=== PATIENT | female | born 1965 | race Caucasian/White ===

== ENCOUNTER 2020-05-11 20:21 | Emergency (ER) | payer OTHER, SELFPAY ==
[2020-05-11 20:30] VITALS: BP 125/76; PULSE 73; RESP 20; TEMP 37.2; O2SAT 99; BMI 36.0
--- NOTE | 2020-05-11 21:02 | HMH.EDUTC ---
[facility] Disposition Clinical Impression: Gastroenteritis Diarrhea Qualifiers: Diarrhea type: unspecified type Qualified Code(s): R19.7 - Diarrhea, unspecified Disposition: Home, Self-Care Condition on Discharge: Good Instructions: Viral Gastroenteritis, DI for Viral Gastroenteritis -- Adult Additional Instructions: Drink plenty of fluids. Take tylenol or ibuprofen for pain or fever. Take the medications as directed. Follow up with your regular doctor. GO TO THE ER FOR ANY WORSENING SYMPTOMS Prescriptions: Ondansetron [Zofran 4mg ODT] 4 mg PO Q8HP PRN #20 tab.rapdis PRN Reason: Nausea Transmission Status: Received by [place] [id number] Dicyclomine HCl [Bentyl 10mg capsule] 10 mg PO TIDP PRN #30 cap PRN Reason: Cramping Transmission Status: Received by [facility] [id number] Referrals: PCP,No [Primary Care Provider] - Time of Disposition: 21:11 Medical Decision Making - Medical Records Medical records reviewed: No: I reviewed the patient's medical records. - Jose Inquiry Pt receiving controlled substance: No Vital Signs: 05/11/20 20:30 05/11/20 21:22 Temperature 99.0 F 99.0 F Temperature Source Oral Pulse Rate 73 Pulse Rate [Right Brachial] 73 Respiratory Rate 20 20 Blood Pressure 125/76 Blood Pressure [Right Arm] 125/76 Blood Pressure Mean [Right Arm] 92 Blood Pressure Source [Right Arm] Automatic Cuff Blood Pressure Position [Right Arm] Sitting 02 Sat by Pulse Oximetry 99 Oxygen Delivery Method Room Air - Lab Data Lab results reviewed: Yes: I reviewed the patient's lab results. Lab Results 05/11/20 20:50: Urine Color Yellow, Urine Appearance Clear, Urine pH 7.0, Ur Specific [place] 1.010, Urine Protein Negative, Urine Glucose (UA) Negative, Urine Ketones Negative, Urine Blood Trace, Urine Nitrate Negative, Urine Bilirubin Negative, Urine Urobilinogen 0.2, Ur Leukocyte Esterase Negative Orders (Tests/Meds): ED MEDICATIONS Discontinued Medications Generic Name Dose Route Start Last Admin Trade Name Freq PRN Reason Stop Dose Admin Promethazine HCl 25 mg 05/11/20 21:13 05/11/20 21:22 Promethazine Hcl 25mg/Ml 1ml Vial IM 05/11/20 21:14 Not Given ONCE ONE Promethazine HCl 25 mg 05/11/20 21:19 05/11/20 21:20 Promethazine 25mg Tablet PO 05/11/20 21:20 25 mg ONCE ONE Administration Sodium Chloride 25 ml 05/11/20 21:13 05/11/20 21:22 Sodium Chloride 0.9% 25ml Bag IV 05/11/20 21:14 Not Given ONCE ONE [facility] HPI - General Stated complaint: nausea, vomiting, diarrhea Time Seen by Provider: 05/11/20 21:02 - History of Present Illness Provider Complaint: She states that since yesterday she has had diarrhea/abdominal cramping/nausea/vomiting. She thinks that she has e. coli poisoning. She had it once in the past and it felt like she does right now. She has not vomited since last night, but she has continued to have diarrhea and abdominal cramping. - Related Data Previous Rx's Medication Instructions Recorded Dicyclomine HCl [Bentyl 10mg 10 mg PO TIDP PRN #30 cap 05/11/20 capsule] Ondansetron [Zofran 4mg ODT] 4 mg PO Q8HP PRN #20 tab.rapdis 05/11/20 Allergies Allergy/AdvReac Type Severity Reaction Status Date / Time No Known Allergies Allergy Verified 05/11/20 21:04 [facility] History - Hepatitis A Screen Attestation statement:: This patient has been screened for Hepatitis A risk factors. I have reviewed the patient's past medical history: Yes ROS Obtained: Yes All systems reviewed & no additional complaints - Constitutional Constitutional: Reports chills, Denies fever(s), Reports poor appetite, Reports malaise - Eyes Eyes: Denies eye discharge - ENT Ears, Nose, Mouth, and Throat: Denies sore throat - Cardiovascular Cardiovascular: Denies chest pain - Respiratory Respiratory: Denies chest congestion, Denies cough, Denies dyspnea, Denies stridor, Denies wheezing - Gastro
[2020-05-11 21:04] LABS: Apearance,Urine Clear (Clear); Bilirubin,Urine Negative (Negative); Blood, Urine Trace (Negative); Color,Urine Yellow (Yellow); Glucose,Urine (UA) Negative (Negative); Ketones,Urine Negative (Negative); Protein,Urine Negative (Negative); UTC Leukocyte Esterase,Urine Negative (Negative); UTC Nitrate,Urine Negative (Negative); Urobilinogen,Urine 0.2 EU/dl (0.2)
[2020-05-11 21:22] VITALS: BP 125/76; PULSE 73; RESP 20; TEMP 37.2; O2SAT 99
== END 2020-05-11 21:25 | disposition home or self-care (01) ==
PROVIDERS: Emergency Provider Nurse Practitioner Family
DX: K52.9 Noninfective gastroenteritis and colitis, unspecified (principal)
CPT/HCPCS: 81003; 99202; G0463

== ENCOUNTER → 2021-07-07 14:38 | Outpatient (POV) | payer OTHER, SELFPAY | PROVIDERS: Visit Provider Dermatology | DX: Z00.00 Encounter for general adult medical examination without abnormal findings (principal) ==

== ENCOUNTER 2022-06-29 14:24 | Emergency (ER) | payer OTHER, SELFPAY ==
[2022-06-29 15:00] VITALS: BP 106/70; PULSE 69; RESP 20; TEMP 37; O2SAT 95; BMI 36.3
--- NOTE | 2022-06-29 15:05 | EXP.UTC ---
Discharge Plan Disposition Patient Disposition: Home, Self-Care Condition: Good Prescriptions Prescriptions: New benzonatate [benzonatate] 100 mg capsule 100 mg PO TIDP PRN (Reason: Cough) Qty: 30 0RF amoxicillin [amoxicillin] 400 mg/5 mL suspension for reconstitution 500 mg PO TID 10 Days Qty: 187.5 0RF methylprednisolone 4 mg Tablets,Dose Pack 4 mg PO DIRECTED Qty: 21 0RF ofloxacin 0.3 % drops See Rx Instructions .ROUTE .COMPLEX Qty: 5 0RF Rx Instructions: put 1 drp into affected eye every 2 h x 2 days, then 1 drp 4 times/day days 3-7 No Action atorvastatin 10 mg tablet 10 mg PO DAILY diltiazem HCl 360 mg capsule,extended release 24hr 360 mg PO DAILY potassium chloride 10 mEq tablet extended release 10 meq PO DAILY bisoprolol fumarate 5 mg tablet 5 mg PO DAILY alprazolam 0.5 mg tablet 0.5 mg PO NEEDED PRN (Reason: .) pantoprazole 40 mg tablet,delayed release (DR/EC) 40 mg PO DAILY furosemide 20 mg tablet 20 mg PO DAILY lisinopril 40 mg tablet 40 mg PO DAILY Referrals Follow up/Referrals: Provider,Referral, MD [Primary Care Provider] - See instructions Activity Restrictions/Add. Instructions Additional Instructions/Restrictions: Drink plenty of fluids. Take tylenol or ibuprofen for pain or fever. Take the medications as directed. Follow up with your regular doctor. GO TO THE ER FOR ANY WORSENING SYMPTOMS Use the eye drops as directed. Strict hand washing in the house hold, because conjunctivitis is very contagious. Follow up with your regular doctor. GO TO THE ER FOR ANY WORSENING SYMPTOMS OR CONCERNS Clinical Impressions Clinical Impression: Conjunctivitis, Sinusitis Instructions Patient Instructions: DI for Sinusitis, Sinusitis Discharge ED Provider: Darrell Aquino [facility] HPI General Stated complaint: Eye redness w/drainage Time Seen by Provider: 06/29/22 15:05 Description of Symptoms (Recalled from Triage Doc. by RN): She states that for the past 1 week she has had sinus congestion. Over the past 2 days she has had bilateral eye irritation and redness with matting and greenish discharge. Related Data Home Medications Medication Instructions Recorded Confirmed alprazolam 0.5 mg tablet 0.5 mg PO NEEDED PRN . 06/29/22 06/29/22 atorvastatin 10 mg tablet 10 mg PO DAILY . 06/29/22 06/29/22 bisoprolol fumarate 5 mg tablet 5 mg PO DAILY . 06/29/22 06/29/22 diltiazem HCl 360 mg 360 mg PO DAILY . 06/29/22 06/29/22 capsule,extended release 24 hr furosemide 20 mg tablet 20 mg PO DAILY . 06/29/22 06/29/22 lisinopril 40 mg tablet 40 mg PO DAILY , 06/29/22 06/29/22 pantoprazole 40 mg tablet,delayed 40 mg PO DAILY gerd 06/29/22 06/29/22 release potassium chloride 10 mEq 10 meq PO DAILY . 06/29/22 06/29/22 tablet,extended release Previous Rx's Medication Instructions Recorded amoxicillin 400 mg/5 mL oral 500 mg (6.25 mL) PO TID 10 days 06/29/22 suspension #187.5 mL benzonatate 100 mg capsule 100 mg PO TIDP PRN Cough #30 caps 06/29/22 methylprednisolone 4 mg tablets in 4 mg PO DIRECTED #21 tabs 06/29/22 a dose pack ofloxacin 0.3 % eye drops See Rx Instructions ophthalmic 06/29/22 (eye) .COMPLEX #5 mL Allergies Allergy/AdvReac Type Severity Reaction Status Date / Time No Known Allergies Allergy Verified 06/29/22 15:16 [facility] Disclaimer: The information contained in this section may have been updated after the patient was seen, as this information can be updated by other users. Social History Smoking Status: Never smoker alcohol intake: never current occupational status: other Travel in the last 8 weeks: None ROS Obtained: Yes All systems reviewed & no additional complaints except as documented Constitutional Constitutional: Reports poor appetite Eyes Eyes: Reports eye discharge ENT E
[2022-06-29 15:50] VITALS: BP 106/70; PULSE 69; RESP 20; TEMP 37; O2SAT 95
== END 2022-06-29 15:50 | disposition home or self-care (01) ==
PROVIDERS: Emergency Provider Nurse Practitioner Family
DX: J01.90 Acute sinusitis, unspecified (principal); H10.33 Unspecified acute conjunctivitis, bilateral
CPT/HCPCS: 99212; 99214; G0463

== ENCOUNTER 2022-09-08 15:05 | Emergency (ER) | payer OTHER, SELFPAY ==
[2022-09-08 15:07] VITALS: BP 114/57; PULSE 66; RESP 18; TEMP 36.7; O2SAT 96; BMI 36.0
--- NOTE | 2022-09-08 15:38 | EXP.UTC ---
Discharge Plan Prescriptions Prescriptions: No Action atorvastatin 10 mg tablet 10 mg PO DAILY diltiazem HCl 360 mg capsule,extended release 24hr 360 mg PO DAILY potassium chloride 10 mEq tablet extended release 10 meq PO DAILY bisoprolol fumarate 5 mg tablet 5 mg PO DAILY alprazolam 0.5 mg tablet 0.5 mg PO NEEDED PRN (Reason: .) pantoprazole 40 mg tablet,delayed release (DR/EC) 40 mg PO DAILY furosemide 20 mg tablet 20 mg PO DAILY lisinopril 40 mg tablet 40 mg PO DAILY benzonatate [benzonatate] 100 mg capsule 100 mg PO TIDP PRN (Reason: Cough) Qty: 30 0RF amoxicillin [amoxicillin] 400 mg/5 mL suspension for reconstitution 500 mg PO TID 10 Days Qty: 187.5 0RF methylprednisolone 4 mg Tablets,Dose Pack 4 mg PO DIRECTED Qty: 21 0RF ofloxacin 0.3 % drops See Rx Instructions .ROUTE .COMPLEX Qty: 5 0RF Rx Instructions: put 1 drp into affected eye every 2 h x 2 days, then 1 drp 4 times/day days 3-7 Referrals Follow up/Referrals: Provider,Referral, MD [Primary Care Provider] - See instructions Discharge ED Provider: Janeth Breen [facility] [place] HPI General Stated complaint: [id number] LT index finger, metal slither still in fi Mode of Arrival: Ambulatory Source of Information: Patient Limitations: No Limitations Description of Symptoms (Recalled from Triage Doc. by RN): Patient states she got a piece of abner metal stuck in her finger yesterday and now presents to [facility] requesting a tetanus shot. HEENT Symptoms (Recalled from RN notes): No Resp Symptoms (Recalled from RN notes): No Skin Symptoms (Recalled from RN notes): Yes MS Symptoms (Recalled from RN notes): No Functional Status (Recalled from RN notes): wnl Related Data Home Medications Medication Instructions Recorded Confirmed alprazolam 0.5 mg tablet 0.5 mg PO NEEDED PRN . 06/29/22 06/29/22 atorvastatin 10 mg tablet 10 mg PO DAILY . 06/29/22 06/29/22 bisoprolol fumarate 5 mg tablet 5 mg PO DAILY . 06/29/22 06/29/22 diltiazem HCl 360 mg 360 mg PO DAILY . 06/29/22 06/29/22 capsule,extended release 24 hr furosemide 20 mg tablet 20 mg PO DAILY . 06/29/22 06/29/22 lisinopril 40 mg tablet 40 mg PO DAILY , 06/29/22 06/29/22 pantoprazole 40 mg tablet,delayed 40 mg PO DAILY gerd 06/29/22 06/29/22 release potassium chloride 10 mEq 10 meq PO DAILY . 06/29/22 06/29/22 tablet,extended release Previous Rx's Medication Instructions Recorded amoxicillin 400 mg/5 mL oral 500 mg (6.25 mL) PO TID 10 days 06/29/22 suspension #187.5 mL benzonatate 100 mg capsule 100 mg PO TIDP PRN Cough #30 caps 06/29/22 methylprednisolone 4 mg tablets in 4 mg PO DIRECTED #21 tabs 06/29/22 a dose pack ofloxacin 0.3 % eye drops See Rx Instructions ophthalmic 06/29/22 (eye) .COMPLEX #5 mL Allergies Allergy/AdvReac Type Severity Reaction Status Date / Time No Known Allergies Allergy Verified 06/29/22 15:16 Worker's Comp Is this a Worker's Comp case?: No PFSH [facility] Disclaimer: The information contained in this section may have been updated after the patient was seen, as this information can be updated by other users. Social History (Updated 06/29/22 @ 16:18 by Darrell Aquino APRN) Smoking Status: Never smoker alcohol intake: never current occupational status: other Travel in the last 8 weeks: None Medical Decision Making Vital Signs: 09/08/22 15:07 Temperature 98.0 F Temperature Source Oral Pulse Rate [Radial] 66 Respiratory Rate 18 Blood Pressure [Right Arm] 114/57 L Blood Pressure Mean [Right Arm] 76 Blood Pressure Source [Right Arm] Automatic Cuff Blood Pressure Position [Right Arm] Sitting 02 Sat by Pulse Oximetry 96 Oxygen Delivery Method Room Air
[2022-09-08 15:55] VITALS: BP 114/57; PULSE 66; RESP 18; TEMP 36.7; O2SAT 96
--- NOTE | 2022-09-08 15:57 | PC.NURSE ---
Patient very eager to leave after vaccination. Educated patient on the need to wait 15 minutes before discharge. Patient stating she has a meeting at 4 o'clock and needs to leave now.
== END 2022-09-08 15:56 | disposition home or self-care (01) ==
LOC: UTC 15:10
PROVIDERS: Emergency Provider Nurse Practitioner
DX: Z23 Encounter for immunization (principal)
CPT/HCPCS: 90471; 90714; 90715; 96372; 99212; G0463

== ENCOUNTER → 2022-11-15 13:38 | Outpatient (CLI) | payer OTHER, SELFPAY ==
--- NOTE | 2022-11-15 13:50 | MM_ITS ---
PROCEDURE INFORMATION: Exam: MG Bilateral Screening 3D Mammography Exam date and time: 11/15/2022 1:40 PM Age: 57 years old Clinical indication: Screening TECHNIQUE: Imaging protocol: Bilateral Screening tomosynthesis and 2D mammography including computer-aided detection (CAD) when performed. COMPARISON: 1. MG MAMMO DIAGNOSTIC DIGITAL TOMOSYNTHESIS BILATERAL W CAD 02/11/2017 1:41 PM 2. US BREAST BILATERAL LIMITED 02/11/2017 6:08 PM FINDINGS: MAMMOGRAPHY: Breast composition: The breast tissue is composed of scattered areas of fibroglandular density. Mass: None Architectural distortion: None. Calcifications: No suspicious calcifications. Asymmetric density: None. Skin thickening: None Axillary adenopathy: None. IMPRESSION: No mammographic evidence of malignancy. Annual bilateral mammographic screening is recommended unless otherwise clinically indicated. ASSESSMENT: BI-RADS Category 1: Negative
== END ==
PROVIDERS: Visit Provider Internal Medicine
DX: Z12.31 Encounter for screening mammogram for malignant neoplasm of breast
CPT/HCPCS: 77062; 77063; 77066; 77067; G0279

== ENCOUNTER → 2022-11-25 11:04 | Outpatient (CLI) | payer OTHER, SELFPAY ==
[2022-11-25 11:14] LABS: Adenovirus F 40/41, stool Not Detected (NotDetected); Astrovirus Not Detected (NotDetected); Campylobacter Not Detected (NotDetected); Clostridium Difficile A/B, PCR Not Detected (NotDetected); Cryptosporidium Not Detected (NotDetected); Cyclospora Cayetanesis Not Detected (NotDetected); Entamoeba histolytica Not Detected (NotDetected); Enteroaggregative E coli Not Detected (NotDetected); Enterotoxigenic E coli Not Detected (NotDetected); Giardia lamblia Not Detected (NotDetected); Norovirus Not Detected (NotDetected); Plesimonas Shigalloides, PCR Not Detected (NotDetected); Rotavirus A Not Detected (NotDetected); Salmonella, PCR Not Detected (NotDetected); Sapovirus Not Detected (NotDetected); Shiga-like toxin E coli Not Detected (NotDetected); Shigella Enterovasive E coli Not Detected (NotDetected); Vibrio Cholerae Not Detected (NotDetected); Vibrio, PCR Not Detected (NotDetected); Yersinia Entercolitica, PCR Not Detected (NotDetected)
[2022-11-26 11:07] LABS: Enteropathogenic E coli Detected (NotDetected)
== END ==
PROVIDERS: PCP Internal Medicine; Visit Provider Internal Medicine
DX: R19.7 Diarrhea, unspecified (principal); A04.0 Enteropathogenic Escherichia coli infection
CPT/HCPCS: 87177; 87507

== ENCOUNTER 2023-01-18 11:06 | Emergency (ER) | payer OTHER, SELFPAY ==
[2023-01-18 11:10] VITALS: BP 146/80; PULSE 83; RESP 21; TEMP 37.1; O2SAT 94; BMI 32.8
--- NOTE | 2023-01-18 11:26 | EXP.UTC ---
Discharge Plan Disposition Patient Disposition: Home, Self-Care Condition: Good Prescriptions Prescriptions: New azithromycin [Zithromax Z-Musa] 250 mg tablet See Rx Instructions .ROUTE .COMPLEX 5 Days Qty: 6 0RF Rx Instructions: For 250 mg dose pack: take 500 mg today (day 1), then 250 mg for 4 days (days 2-5) methylprednisolone [Medrol (Musa)] 4 mg tablets,dose pack See Rx Instructions .Route .COMPLEX 6 Days Qty: 21 0RF Rx Instructions: taper pack; guaifenesin [Mucinex] 600 mg tablet extended release 12hr 1,200 mg PO BID PRN (Reason: cough) Qty: 20 0RF No Action atorvastatin 10 mg tablet 10 mg PO DAILY diltiazem HCl 360 mg capsule,extended release 24hr 360 mg PO DAILY potassium chloride 10 mEq tablet extended release 10 meq PO DAILY bisoprolol fumarate 5 mg tablet 5 mg PO DAILY alprazolam 0.5 mg tablet 0.5 mg PO NEEDED PRN (Reason: .) pantoprazole 40 mg tablet,delayed release (DR/EC) 40 mg PO DAILY furosemide 20 mg tablet 20 mg PO DAILY lisinopril 40 mg tablet 40 mg PO DAILY benzonatate [benzonatate] 100 mg capsule 100 mg PO TIDP PRN (Reason: Cough) Qty: 30 0RF amoxicillin [amoxicillin] 400 mg/5 mL suspension for reconstitution 500 mg PO TID 10 Days Qty: 187.5 0RF methylprednisolone 4 mg Tablets,Dose Pack 4 mg PO DIRECTED Qty: 21 0RF ofloxacin 0.3 % drops See Rx Instructions .ROUTE .COMPLEX Qty: 5 0RF Rx Instructions: put 1 drp into affected eye every 2 h x 2 days, then 1 drp 4 times/day days 3-7 Referrals Follow up/Referrals: Nuria Wilson MD [Primary Care Provider] - See instructions Activity Restrictions/Add. Instructions Additional Instructions/Restrictions: Start antibiotic today. Be sure to complete entire prescription even if feeling better Monitor temp. Tylenol every 4 hours as needed and / or ibuprofen every 6 hours as needed ( As long as your primary care physician has told you that it ok to take both. For fever/aches/pains ER if no less than 101 despite Tylenol or Motrin Humidifier/vaporizer or hot steamy shower Inhaler every 4-6 hours as needed like we discussed. If unsure how to use it, ask pharmacist to demonstrate how. Should help open airways and improve cough, wheezing, and shortness of breath Mucinex during the day for your cough and cough suppressant only at night. Be sure to drink lots of water. Insurance may not cover a prescriptions for mucinex. Might be cheaper to get 400mg tablets and take 2 tablet in the morning, mid-day and evening with lots of water. *Start steroid today. Helps with inflammation therefore, cough and wheezing. Follow directions on the package. Reviewed side effects. Patient reports taking them before. Follow up IMMEDIATELY for new or worsening of symptoms OR no noticeable improvement over the next 48-72 hours. 911 immediately for any life threatening symptoms such as chest pain or difficulty breathing Clinical Impressions Clinical Impression: Acute bronchitis Qualifiers: Bronchitis organism: unspecified organism Qualified Code(s): J20.9 - Acute bronchitis, unspecified Instructions Patient Instructions: Acute Bronchitis, Asthma -- Adult, DI for Acute Bronchitis Discharge ED Provider: Janeth Breen [facility] General Stated complaint: soa Mode of Arrival: Ambulatory Source of Information: Patient Limitations: No Limitations Time Seen by Provider: 01/18/23 11:26 Description of Symptoms (Recalled from Triage Doc. by RN): PATIENT C/O SOA SINCE YESTERDAY HEENT Symptoms (Recalled from RN notes): No Resp Symptoms (Recalled from RN notes): Yes Skin Symptoms (Recalled from RN notes): No MS Symptoms (Recalled from RN notes): No Functional Status (Recalled from RN notes): WNL History of Present Illness Provider Complaint: Patient states that she has a history of
[2023-01-18 11:48] VITALS: BP 146/80; PULSE 83; RESP 21; TEMP 37.1; O2SAT 94
== END 2023-01-18 11:51 | disposition home or self-care (01) ==
PROVIDERS: Emergency Provider Nurse Practitioner; PCP Internal Medicine
DX: J20.9 Acute bronchitis, unspecified (principal); R06.02 Shortness of breath; J44.9 Chronic obstructive pulmonary disease, unspecified; I10 Essential (primary) hypertension; F41.9 Anxiety disorder, unspecified; F32.A Depression, unspecified
CPT/HCPCS: 96372; 99212; 99214; G0463

== ENCOUNTER 2023-01-19 15:21 | Emergency (ER) | payer OTHER, SELFPAY ==
[2023-01-19 15:22] VITALS: BP 139/86; PULSE 76; RESP 18; TEMP 36.8; O2SAT 97; BMI 36.0
--- NOTE | 2023-01-19 15:45 | EXP.UTC ---
Discharge Plan Disposition Patient Disposition: Home, Self-Care Condition: Good Prescriptions Prescriptions: New albuterol sulfate 90 mcg/actuation HFA aerosol inhaler 1 inh inhalation QID PRN (Reason: shortness of breath or wheezing) Qty: 6.7 0RF No Action atorvastatin 10 mg tablet 10 mg PO DAILY diltiazem HCl 360 mg capsule,extended release 24hr 360 mg PO DAILY potassium chloride 10 mEq tablet extended release 10 meq PO DAILY bisoprolol fumarate 5 mg tablet 5 mg PO DAILY alprazolam 0.5 mg tablet 0.5 mg PO NEEDED PRN (Reason: .) pantoprazole 40 mg tablet,delayed release (DR/EC) 40 mg PO DAILY furosemide 20 mg tablet 20 mg PO DAILY lisinopril 40 mg tablet 40 mg PO DAILY azithromycin [Zithromax Z-Musa] 250 mg tablet See Rx Instructions .ROUTE .COMPLEX 5 Days Qty: 6 0RF Rx Instructions: For 250 mg dose pack: take 500 mg today (day 1), then 250 mg for 4 days (days 2-5) methylprednisolone [Medrol (Musa)] 4 mg tablets,dose pack See Rx Instructions .Route .COMPLEX 6 Days Qty: 21 0RF Rx Instructions: taper pack; guaifenesin [Mucinex] 600 mg tablet extended release 12hr 1,200 mg PO BID PRN (Reason: cough) Qty: 20 0RF Referrals Follow up/Referrals: Ifeanyi Barrera MD [Primary Care Provider] - See instructions Clinical Impressions Clinical Impression: Acute bronchitis Qualifiers: Bronchitis organism: unspecified organism Qualified Code(s): J20.9 - Acute bronchitis, unspecified Instructions Patient Instructions: DI for Acute Bronchitis, Acute Bronchitis Discharge ED Provider: Ivonne ([facility])Nirmal [facility] [place] General Stated complaint: SOA Mode of Arrival: Ambulatory Source of Information: Patient Limitations: No Limitations Time Seen by Provider: 01/19/23 15:45 Description of Symptoms (Recalled from Triage Doc. by RN): Pt was seen yesterday for the same issues. She stated that she feels like she cannot take a full breath . She was given mucus, medrol, and a zpak. She is wanting maybe a steroid shot or a breathing treatment. HEENT Symptoms (Recalled from RN notes): Yes Resp Symptoms (Recalled from RN notes): No Skin Symptoms (Recalled from RN notes): No MS Symptoms (Recalled from RN notes): No Functional Status (Recalled from RN notes): n/a History of Present Illness Provider Complaint: Pt was seen yesterday for the same issues. She stated that she feels like she cannot take a full breath . She was given mucus, medrol, and a zpak. She is wanting maybe a steroid shot or a breathing treatment. refused chest xray Related Data Home Medications Medication Instructions Recorded Confirmed alprazolam 0.5 mg tablet 0.5 mg PO NEEDED PRN . 06/29/22 06/29/22 atorvastatin 10 mg tablet 10 mg PO DAILY . 06/29/22 06/29/22 bisoprolol fumarate 5 mg tablet 5 mg PO DAILY . 06/29/22 06/29/22 diltiazem HCl 360 mg 360 mg PO DAILY . 06/29/22 06/29/22 capsule,extended release 24 hr furosemide 20 mg tablet 20 mg PO DAILY . 06/29/22 06/29/22 lisinopril 40 mg tablet 40 mg PO DAILY , 06/29/22 06/29/22 pantoprazole 40 mg tablet,delayed 40 mg PO DAILY gerd 06/29/22 06/29/22 release potassium chloride 10 mEq 10 meq PO DAILY . 06/29/22 06/29/22 tablet,extended release Previous Rx's Medication Instructions Recorded azithromycin 250 mg tablet See Rx Instructions PO .COMPLEX 5 01/18/23 (Zithromax Z-Musa) days #6 tabs guaifenesin 600 mg tablet, 1,200 mg PO BID PRN cough #20 tabs 01/18/23 extended release 12 hr (Mucinex) methylprednisolone 4 mg tablets in See Rx Instructions .Route 01/18/23 a dose pack (Medrol (Musa)) .COMPLEX 6 days #21 tabs albuterol sulfate 90 mcg/actuation 1 inh inhalation QID PRN shortness 01/19/23 aerosol inhaler of breath or wheezing #6.7 grams Allergies Allergy/AdvReac Type Severity Reaction Status Date / Time No Known Allergies Allergy Verified 01/19/23 15:39 Worker's Comp Is this a Worker's Comp
[2023-01-19 16:10] VITALS: BP 139/86; PULSE 76; RESP 18; TEMP 36.8; O2SAT 97
== END 2023-01-19 16:10 | disposition home or self-care (01) ==
PROVIDERS: Emergency Provider Nurse Practitioner Family; PCP Internal Medicine
DX: J20.9 Acute bronchitis, unspecified (principal); R06.02 Shortness of breath; J44.9 Chronic obstructive pulmonary disease, unspecified; I10 Essential (primary) hypertension; F41.9 Anxiety disorder, unspecified; F32.A Depression, unspecified
CPT/HCPCS: 99212; 99214; G0463

== ENCOUNTER 2023-09-09 12:43 | Outpatient (CLI) | payer OTHER, SELFPAY ==
[2023-09-09 12:49] LABS: Adenovirus F 40/41, stool Not Detected (NotDetected); Astrovirus Not Detected (NotDetected); Campylobacter Not Detected (NotDetected); Clostridium Difficile A/B, PCR Not Detected (NotDetected); Cryptosporidium Not Detected (NotDetected); Cyclospora Cayetanesis Not Detected (NotDetected); Entamoeba histolytica Not Detected (NotDetected); Enteroaggregative E coli Not Detected (NotDetected); Enteropathogenic E coli Not Detected (NotDetected); Enterotoxigenic E coli Not Detected (NotDetected); Giardia lamblia Not Detected (NotDetected); Norovirus Not Detected (NotDetected); Plesimonas Shigalloides, PCR Not Detected (NotDetected); Rotavirus A Not Detected (NotDetected); Salmonella, PCR Not Detected (NotDetected); Sapovirus Not Detected (NotDetected); Shiga-like toxin E coli Not Detected (NotDetected); Shigella Enterovasive E coli Not Detected (NotDetected); Vibrio Cholerae Not Detected (NotDetected); Vibrio, PCR Not Detected (NotDetected); Yersinia Entercolitica, PCR Not Detected (NotDetected)
== END 2023-09-09 23:59 | disposition home or self-care (01) ==
PROVIDERS: Internal Medicine
DX: R19.7 Diarrhea, unspecified (principal)
CPT/HCPCS: 87507

== ENCOUNTER 2023-09-21 12:39 | Outpatient (CLI) | payer OTHER, SELFPAY | END 2023-09-21 23:59 | disposition home or self-care (01) | LOC: LAB.DROPOF 12:43 | PROVIDERS: PCP Internal Medicine; Visit Provider Internal Medicine | DX: R19.7 Diarrhea, unspecified (principal) | CPT/HCPCS: 87177 ==

== ENCOUNTER 2023-11-04 12:03 | Emergency (ER) | payer OTHER, SELFPAY ==
--- NOTE | 2023-11-04 12:17 | ED_ITS ---
Discharge Plan Disposition Patient Disposition: Home, Self-Care Condition: Good Prescriptions Prescriptions: New mupirocin 2 % ointment 1 applic topical TID 7 Days Qty: 15 0RF amoxicillin-pot clavulanate 875-125 mg Tablet 1 tab PO Q12H Qty: 20 0RF No Action zolpidem 10 mg tablet 10 mg PO HS PRN (Reason: insomnia) Qty: 30 0RF atorvastatin 10 mg tablet 10 mg PO DAILY diltiazem HCl 360 mg capsule,extended release 24hr 360 mg PO DAILY potassium chloride 10 mEq tablet extended release 10 meq PO DAILY bisoprolol fumarate 5 mg tablet 5 mg PO DAILY alprazolam 0.5 mg tablet 0.5 mg PO NEEDED PRN (Reason: .) pantoprazole 40 mg tablet,delayed release (DR/EC) 40 mg PO DAILY furosemide 20 mg tablet 20 mg PO DAILY lisinopril 40 mg tablet 40 mg PO DAILY azithromycin [Zithromax Z-Musa] 250 mg tablet See Rx Instructions .ROUTE .COMPLEX 5 Days Qty: 6 0RF Rx Instructions: For 250 mg dose pack: take 500 mg today (day 1), then 250 mg for 4 days (days 2-5) methylprednisolone [Medrol (Musa)] 4 mg tablets,dose pack See Rx Instructions .Route .COMPLEX 6 Days Qty: 21 0RF Rx Instructions: taper pack; guaifenesin [Mucinex] 600 mg tablet extended release 12hr 1,200 mg PO BID PRN (Reason: cough) Qty: 20 0RF albuterol sulfate 90 mcg/actuation HFA aerosol inhaler 1 inh inhalation QID PRN (Reason: shortness of breath or wheezing) Qty: 6.7 0RF Referrals Follow up/Referrals: Ifeanyi Barrera MD [Primary Care Provider] - See instructions Activity Restrictions/Add. Instructions Additional Instructions/Restrictions: Keep the wound clean and dry. Keep a dressing on it if you are going to be getting it dirty. Watch the wound for signs of infection, such as redness, swelling, drainage, fever. etc. Take tylenol or ibuprofen for pain. Follow up with your regular doctor. GO TO THE ER FOR ANY WORSENING SYMPTOMS OR CONCERNS. Clinical Impressions Clinical Impression: Abscess of skin Instructions Patient Instructions: Amoxicillin and Clavulanic Acid, Mupirocin, DI for Skin Abscess Print Language Print Language: Sami Discharge ED Provider: Darrell Aquino [facility] HPI General Stated complaint: infection in L thumb Time Seen by Provider: 11/04/23 12:14 Related Data Home Medications ?Medication ?Instructions ?Recorded ?Confirmed alprazolam 0.5 mg tablet 0.5 mg PO NEEDED PRN . 06/29/22 06/29/22 atorvastatin 10 mg tablet 10 mg PO DAILY . 06/29/22 06/29/22 bisoprolol fumarate 5 mg tablet 5 mg PO DAILY . 06/29/22 06/29/22 diltiazem HCl 360 mg 360 mg PO DAILY . 06/29/22 06/29/22 capsule,extended release 24 hr furosemide 20 mg tablet 20 mg PO DAILY . 06/29/22 06/29/22 lisinopril 40 mg tablet 40 mg PO DAILY , 06/29/22 06/29/22 pantoprazole 40 mg tablet,delayed 40 mg PO DAILY gerd 06/29/22 06/29/22 release potassium chloride 10 mEq 10 meq PO DAILY . 06/29/22 06/29/22 tablet,extended release Previous Rx's ?Medication ?Instructions ?Recorded azithromycin 250 mg tablet See Rx Instructions PO .COMPLEX 5 01/18/23 (Zithromax Z-Musa) days #6 tabs guaifenesin 600 mg tablet, 1,200 mg (2 x 600 mg) PO BID PRN 01/18/23 extended release 12 hr (Mucinex) cough #20 tabs methylprednisolone 4 mg tablets in See Rx Instructions .Route 01/18/23 a dose pack (Medrol (Musa)) .COMPLEX 6 days #21 tabs albuterol sulfate 90 mcg/actuation 1 inh inhalation QID PRN shortness 01/19/23 aerosol inhaler of breath or wheezing #6.7 grams zolpidem 10 mg tablet 10 mg PO HS PRN insomnia #30 tabs 10/14/23 amoxicillin 875 mg-potassium 1 tab PO Q12H #20 tabs 11/04/23 clavulanate 125 mg tablet mupirocin 2 % topical ointment 1 applic topical TID 7 days #15 11/04/23 grams Allergies Allergy/AdvReac Type Severity Reaction Status Date / Time No Known Allergies Allergy Verified 01/19/23 15:39 [facility] Disclaimer: The information contained in this section may have been updated after the patient was seen, as this information can be updated by other users. Medical History (Reviewed 01/19/23 @ 15:53 by Nirmal Coronado ([facility]), FACULTY NEUROPSYCHOLOGIST) Anxiety Asthma Atrial fibrillation COPD (chronic obstructive pulmonary disease) Depression Hypertension Social History (Reviewed 01/19/23 @ 15:53 by Nirmal Coronado ([facility]), FACULTY NEUROPSYCHOLOGIST) Smoking Status: Never smoker alcohol intake: never current occupational status: other Travel in the last 8 weeks: None ROS Obtained: Yes All systems reviewed & no additional complaints except as documented Constitutional Constitutional: Denies chills and Denies fever(s) Eyes Eyes: Denies eye discharge ENT Ears, Nose, Mouth, and Throat: Denies dizziness, Denies otalgia and Denies sore throat Cardiovascular Cardiovascular: Denies chest pain Respiratory Respiratory: Denies shortness of breath, Denies chest congestion, Denies cough, Denies stridor and Denies wheezing Gastrointestinal Gastrointestingal: Denies nausea or vomiting Musculoskeletal Musculoskeletal: Reports system reviewed and no additional complaints, except as documented and Denies arthralgias Integumentary/Breasts Skin/Breast: Reports as per HPI Neurologic Neurologic: Denies dizziness and Denies paresthesias Allergic/Immunologic Allergic/Immunologic: Denies wheezing Physical Exam General General appearance: alert and in no apparent distress Head Head exam: atraumatic, normocephalic and normal inspection Eye Eye exam: Present normal appearance, PERRL and EOMI ENT ENT exam: Present normal exam, normal oropharynx, mucous membranes moist, TM's normal bilaterally and normal external ear exam Neck Neck exam: Present normal inspection, full ROM and trachea midline; Absent meningismus or lymphadenopathy Chest Chest inspection: Present normal inspection and symmetric chest wall rise; Absent tenderness Respiratory Respiratory exam: Present normal lung sounds bilaterally; Absent respiratory distress Cardiovascular Cardiovascular exam: Present regular rate and normal rhythm; Absent JVD Abdominal Exam Abdominal exam: Present soft and normal bowel sounds; Absent distention, tenderness or guarding Extremities Exam Extremities exam: Present normal inspection, full ROM and normal capillary refill; Absent calf tenderness Back Exam Back exam: Present normal inspection; Absent tenderness Neurological Exam Neurological exam: Present alert and oriented X3 Psychiatric Psychiatric exam: Present normal affect and normal mood Skin Skin exam: Present warm, dry, intact and normal color Lymphatic Lymphatic Findings: no adenopathy Medical Decision Making Medical Records Medical records reviewed: No I reviewed the patient's medical records. Jose Inquiry Pt receiving controlled substance: No
[2023-11-04 12:19] VITALS: BP 122/79; PULSE 65; RESP 16; TEMP 36.6; O2SAT 95; BMI 34.4
[2023-11-04 12:48] VITALS: BP 122/79; PULSE 65; RESP 16; TEMP 36.6; O2SAT 95
== END 2023-11-04 12:49 | disposition home or self-care (01) ==
PROVIDERS: Emergency Provider Nurse Practitioner Family; PCP Internal Medicine
DX: L02.512 Cutaneous abscess of left hand (principal)
CPT/HCPCS: 99212; 99214; G0463

== ENCOUNTER 2023-12-23 13:08 | Outpatient (CLI) | payer OTHER, SELFPAY ==
[2023-12-23 13:54] LABS: Hemoglobin A1C 6.1 % (4.0-6.0)
== END 2023-12-23 23:59 | disposition home or self-care (01) ==
PROVIDERS: PCP Internal Medicine; Visit Provider Internal Medicine
DX: R73.03 Prediabetes (principal)
CPT/HCPCS: 36415; 83036

== ENCOUNTER 2024-02-04 15:30 | Emergency (ER) | payer OTHER, SELFPAY ==
[2024-02-04 15:40] VITALS: BP 142/83; PULSE 74; RESP 19; TEMP 36.9; O2SAT 96; BMI 41.3
[2024-02-04] MEDS: TETRACAINE/BENZOCAINE/BUTAMBEN 56 GM SPRAY TP (15:54)
[2024-02-04] MEDS: LIDOCAINE 2% VISCOUS SOL 15ML UDC 15 ML PO (15:54)
--- NOTE | 2024-02-04 15:55 | ED_ITS ---
Discharge Plan Disposition Patient Disposition: Home, Self-Care Condition: Good Prescriptions Prescriptions: No Action temazepam 30 mg capsule 30 mg PO HS PRN (Reason: sleep) Qty: 15 0RF clonazepam [Klonopin] 1 mg tablet 1 mg PO DAILY Qty: 30 1RF Rx Instructions: take when systolic is greater than 180 and dystolic is greater than 110 zolpidem 10 mg tablet 10 mg PO HS PRN (Reason: sleep) Qty: 30 1RF alprazolam 0.5 mg tablet 0.5 mg PO NEEDED PRN (Reason: . Anxiety attack) Qty: 15 0RF atorvastatin 10 mg tablet 10 mg PO DAILY diltiazem HCl 360 mg capsule,extended release 24hr 360 mg PO DAILY potassium chloride 10 mEq tablet extended release 10 meq PO DAILY bisoprolol fumarate 5 mg tablet 5 mg PO DAILY pantoprazole 40 mg tablet,delayed release (DR/EC) 40 mg PO DAILY furosemide 20 mg tablet 20 mg PO DAILY lisinopril 40 mg tablet 40 mg PO DAILY albuterol sulfate 90 mcg/actuation HFA aerosol inhaler 1 inh inhalation QID PRN (Reason: shortness of breath or wheezing) Qty: 6.7 0RF mupirocin 2 % ointment 1 applic topical TID 7 Days Qty: 15 0RF Referrals Follow up/Referrals: Nuria Wilson MD [Primary Care Provider] - See instructions Activity Restrictions/Add. Instructions Additional Instructions/Restrictions: Use dental balls as prescribed You said you had Motrin at home, take it as directed on package and if you need something more take Tylenol Call and make appointment with dentist immediately Soft foods until seen by Dentist Clinical Impressions Clinical Impression: Pain, dental Instructions Patient Instructions: DI for Dental Pain, Ibuprofen Print Language Print Language: Persian Discharge ED Provider: Janeth Breen [facility] [place] HPI General Stated complaint: Toothache Mode of Arrival: Ambulatory Source of Information: Patient Limitations: No Limitations Time Seen by Provider: 02/04/24 15:55 Description of Symptoms (Recalled from Triage Doc. by RN): PATIENT C/O PAIN TO RIGHT TOP TOOTH. SHE STATES SHE WAS EATING LAST NIGHT AND BIT DOWN ON A PIECE OF BONE AND BROKE HER TOOTH HEENT Symptoms (Recalled from RN notes): Yes Resp Symptoms (Recalled from RN notes): No Skin Symptoms (Recalled from RN notes): No MS Symptoms (Recalled from RN notes): No Functional Status (Recalled from RN notes): WNL History of Present Illness Provider Complaint: Patient states that she was eating last night and her a cracking noise States that she thinks she may have cracked or broke her tooth States that she looked and does not see any broken tooth but she has been having pain in the tooth ever since Related Data Home Medications ?Medication ?Instructions ?Recorded ?Confirmed atorvastatin 10 mg tablet 10 mg PO DAILY . 06/29/22 01/13/24 bisoprolol fumarate 5 mg tablet 5 mg PO DAILY . 06/29/22 01/13/24 diltiazem HCl 360 mg 360 mg PO DAILY . 06/29/22 01/13/24 capsule,extended release 24 hr furosemide 20 mg tablet 20 mg PO DAILY . 06/29/22 01/13/24 lisinopril 40 mg tablet 40 mg PO DAILY , 06/29/22 01/13/24 pantoprazole 40 mg tablet,delayed 40 mg PO DAILY gerd 06/29/22 01/13/24 release potassium chloride 10 mEq 10 meq PO DAILY . 06/29/22 01/13/24 tablet,extended release Previous Rx's ?Medication ?Instructions ?Recorded albuterol sulfate 90 mcg/actuation 1 inh inhalation QID PRN shortness 01/19/23 aerosol inhaler of breath or wheezing #6.7 grams mupirocin 2 % topical ointment 1 applic topical TID 7 days #15 11/04/23 grams temazepam 30 mg capsule 30 mg PO HS PRN sleep #15 caps 11/17/23 clonazepam 1 mg tablet (Klonopin) 1 mg PO DAILY #30 tabs 12/27/23 zolpidem 10 mg tablet 10 mg PO HS PRN sleep #30 tabs 12/27/23 alprazolam 0.5 mg tablet 0.5 mg PO NEEDED PRN . Anxiety 01/11/24 attack #15 tabs Allergies Allergy/AdvReac Type Severity Reaction Status Date / Time No Known Allergies Allergy Verified 01/13/24 12:53 Worker's Comp Is this a Worker's Comp case?: No [facility] Disclaimer: The information contained in this section may have been updated after the patient was seen, as this information can be updated by other users. Medical History Depression Anxiety COPD (chronic obstructive pulmonary disease) Asthma Atrial fibrillation Hypertension Social History Smoking Status: Never smoker alcohol intake: never current occupational status: other Travel in the last 8 weeks: None ROS Obtained: Yes All systems reviewed & no additional complaints except as documented and Yes Systems reviewed as appropriate & no additional complaints except as documented Constitutional Constitutional: Reports system reviewed and no additional complaints, except as documented and Reports as per HPI ENT Ears, Nose, Mouth, and Throat: Reports system reviewed and no additional complaints, except as documented, Reports as per HPI and Reports dental pain Cardiovascular Cardiovascular: Reports system reviewed and no additional complaints, except as documented and Reports as per HPI Respiratory Respiratory: Reports system reviewed and no additional complaints, except as documented and Reports as per HPI Gastrointestinal Gastrointestingal: Reports system reviewed and no additional complaints, except as documented and as per HPI Physical Exam General General appearance: alert and in no apparent distress Expanded ENT Exam Open Mouth Image: 2 1. reports tenderness when touched, sensitivity to cold, no swelling or redness noted to gums, has metal filling in one of teeth no obvious breaks or cracks noted Teeth exam: Present dental tenderness # Respiratory Respiratory exam: Present normal lung sounds bilaterally; Absent respiratory distress or wheezes Cardiovascular Cardiovascular exam: Present regular rate, normal rhythm and normal heart sounds Neurological Exam Neurological exam: Present alert, oriented X3 and normal gait Medical Decision Making Medical Records Screening: Per USPSTF and CDC recommendations, given the prevalence of disease in our region, it is our hospital?s policy to screen for HIV and viral Hepatitis for all patients aged 18 and over and those with ongoing risk factors. Jose Inquiry Pt receiving controlled substance: No Jose was queried for this patient: No Vital Signs: 02/04/24 15:40 Temperature 98.4 F Temperature Source Oral Pulse Rate [Left Brachial] 74 Respiratory Rate 19 Blood Pressure [Left Arm] 142/83 H Blood Pressure Mean [Left Arm] 102 Blood Pressure Source [Left Arm] Automatic Cuff Blood Pressure Position [Left Arm] Sitting 02 Sat by Pulse Oximetry 96 Oxygen Delivery Method Room Air Orders (Tests/Meds): ED MEDICATIONS Generic Name Dose Route Start Last Admin Trade Name Freq PRN Reason Stop Dose Admin Benzocaine/Butamben/Tetracaine HCl 1 gm 02/04/24 15:52 02/04/24 15:54 Tetracaine/Benzocaine/Butamben 56 Gm [place] TP 02/04/24 15:53 1 gm ONCE ONE Administration Lidocaine HCl 15 ml 02/04/24 15:52 02/04/24 15:54 Lidocaine 2% Viscous Adela 15ml Udc PO 02/04/24 15:53 15 ml ONCE ONE Administration
[2024-02-04 16:08] VITALS: BP 142/83; PULSE 74; RESP 19; TEMP 36.9; O2SAT 96
== END 2024-02-04 16:10 | disposition home or self-care (01) ==
PROVIDERS: Emergency Provider Nurse Practitioner; PCP Internal Medicine
DX: K08.89 Other specified disorders of teeth and supporting structures (principal)
CPT/HCPCS: 99212; G0381

== ENCOUNTER 2024-12-14 17:44 | Emergency (ER) | payer OTHER, SELFPAY ==
[2024-12-14] VITALS (7 sets, daily range): BP systolic 113–205; BP diastolic 61–114; PULSE 54–65; RESP 9–18; TEMP 37.1; O2SAT 95–99; BMI 36.0
--- NOTE | 2024-12-14 18:20 | ECG_ITS ---
APPROVED REPORT Exam: Resting ECG HR:57 bpm ECG Measurements Heart Rate 57 AXES UT 170 P 32 QRSd 86 QRS 23 QT 402 T 14 QTc 396 Conclusion SINUS BRADYCARDIA LOW QRS VOLTAGE IN PRECORDIAL LEADS [QRS DEFLECTION < 1.0 mV IN CHEST LEADS] BORDERLINE ECG UNCONFIRMED REPORT Electronically signed by : Darrell Chery, 12/14/2024 23:27:56
--- OUTSIDE RECORDS SUMMARY | 2024-12-14 18:28 | XMS_ITS | Patient Health Record ---
Author Organization [facility] Address [address] [place] [address] Care Team Providers Care Operational Trainer Name Role Phone Silvia Rider Unavailable [phone] Allergies Allergen (clinical drug ingredient) Drug/Non Drug Allergy documented on EMR Reaction Allergy Type Onset Date Status codeine Codeine rash Drug Allergy Active Reason For Referral No Information Medications Medication SIG (Take, Route, Frequency, Duration) Notes Start Date End Date Status Fluticasone-Salmeterol 250-50 MCG/ACT Aerosol Powder Breath Activated Inhalation; Duration: 30 Days Active dilTIAZem HCl ER Coated Beads 360 MG Capsule Extended Release 24 Hour Oral; Duration: 30 Days Active Social History Tobacco Use: Social History Observation Description Date Details (start date - stop date) Current Smoker NA - NA Social History Tobacco Use: Social Info Question Answer Notes Tobacco Use/Smoking Are you a current smoker How often do you smoke cigarettes? every day How many cigarettes a day do you smoke? 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 (Z01.419) Active confirmed Plan Of Treatment No Information Insurance Providers Payer Name Payer Address Payer Phone Subscriber Number Group Number Insured Name Patient Relationship to Insured Coverage Start Date Coverage End Date [employer] [place] Claims Dept [address] [place] [address] [id number] Sherie Hernandez Self - patient is the insured Medical (General) History Medical History History ICD Code GI issues high blood pressure lung problems Surgical History Surgery Date(Month/Year) tonsils breast biopsy orAL SURGERY C/S Hospitalization History Reason Date(Month/Year) C/S TONSILS
--- OUTSIDE RECORDS SUMMARY | 2024-12-14 18:28 | XMS_ITS | Encounter Summary ---
[facility] Organization [facility] Address [address] [place] [address] Care Team Providers Care Sewing Machine Repairer Helper Name Role Phone Nuria Wilson MD Primary Care Provi kemal Encounter Details Date Type Department Care Team (Late st Contact Info) Description 11/11/2016 Telephone [facility] [address] [place], [place] [phone] Ramona John, PharmD [address] [place] [address] Social History Tobacco Use Types Packs/Day Years Used Date Smoking Tobacco: Former Cigarettes 2014 Smokeless Tobacco: Never Alcohol Use Standard Drinks/Week Comments No 0 (1 standard drink = 0.6 oz pur e alcohol) Comments Unknown Sex and Gender Information Value Date Recorded Sex Assigned at Not on file Legal Sex Female 9:20 AM EST Gender Identity Not on file Sexual Orientation Not on file Occupation Industry Job Start Date Job End Date Retired Not on file Not on file Not on file documented as of this encounter Miscellaneous Notes * Telephone Encounter - Ramona John, [facility] - 11/11/2016 11:41 AM EDT Pt has been therapeutic (+/- 0.2) since presentation to clinic, although her warfarin dose has varied slightly. Please follow up with her in another 1-2 weeks to see if remote lab is again possible. Last INR 10/13/16. documented in this encounter Plan of Treatment Upcoming Encounters Date Type Department Care Team (Late st Contact Info) Description 01/02/2025 10:30 AM EDT Office Visit [facility] [address] [place] [address] Maye Castro APRN [address] [facility] [address] [place], [place] [id number] documented as of this encounter Visit Diagnoses Not on filedocumented in this encounter Care Teams Sewing Machine Repairer Helper Relationship Specialty Start Date End Date Nuria Wilson MD [address] [place] [address] PCP - General Internal Medicine 10/25/16 documented as of this encounter
--- OUTSIDE RECORDS SUMMARY | 2024-12-14 18:28 | XMS_ITS | Encounter Summary ---
[facility] Address [address] [place] [address] Care Team Providers Care Crime Victim Specialist Name Role Phone Nuria Wilson MD Primary Care Provi kemal Reason for Visit * Reason Comments Med Refill Encounter Details Date Type Department Care Team (Late st Contact Info) Description 11/19/2024 Refill [facility] [address] [facility] [facility] [address] [phone] Nuria Wilson MD [address] [facility] [address] [place] [id number] Social History Tobacco Use Types Packs/Day Years Used Date Smoking Tobacco: Light Smoker Cigarettes 1.5 46.7 Started: 016; Last attempted to quit: 04/11/2014 Passive Smoke Exposure: Current Smokeless Tobacco: Never Alcohol Use Standard Drinks/Week Comments No 0 (1 standard drink = 0.6 oz pur e alcohol) PHQ-2 Answer Date Recorded Retired PHQ-9: Brief Depression Severity Measure Score 1 05/25/2022 Abuse Screen Answer Date Recorded Unsafe at Home or Work/School Not on file Feels Threatened by Someone? Not on file 02/2023 Does Anyone Keep You from Co ntacting Others or Doint Things Outside the Home? Not on file 01/19/2023 Physical Sign of Abuse Present Not on file 1 Housing Stability Answer Date Recorded Current Living Arrangements Not on file 01/09 Potentially Unsafe Housing Conditions Not on jose de jesus e 01/19/2023 Family and Community Support Answer Jose e Recorded Help with Day-to-Day Activities Not on file 01/19/2023 Lonely or Isolated Not on file 01/19/2023 Employment Answer Date Recorded Do you want help finding or keeping work or a faustina b? Not on file 01/19/2023 Disabilities Answer Date Recorded Concentrating, Remembering, or Making Decisions Difficulty Not on file 01/19/2023 Doing Errands Independently Difficulty Not on fi le 01/19/2023 Education Answer Date Recorded Help with school or training? Not on file Preferred Language Not on file 01/19/2023 PHQ-2 Answer Date Recorded Retired PHQ-9: Brief Depression Severity Measure Score 0 09/07/2023 Education Answer Date Recorded What is the highest level of school you have completed or the highest degree you have received? Some college, no degree 05/26/2022 Comments No Sex and Gender Information Value Date Recorded Sex Assigned at Not on file Legal Sex Female 9:20 AM EST Gender Identity Not on file Sexual Orientation Not on file Occupation Industry Job Start Date Job End Date Retired Not on file Not on file Not on file documented as of this encounter Plan of Treatment Upcoming Encounters Date Type Department Care Team (Late st Contact Info) Description 01/02/2025 10:30 AM EDT Office Visit [facility] [address] [facility] [address] Maye Castro, JUHI [address] [place] [address] documented as of this encounter Visit Diagnoses Not on filedocumented in this encounter Care Teams Crime Victim Specialist Relationship Specialty Start Date End Date Nuria Wilson MD [address] [place] [address] PCP - General Internal Medicine 10/25/16 documented as of this encounter
--- OUTSIDE RECORDS SUMMARY | 2024-12-14 18:28 | XMS_ITS | Clinical Summary ---
Author Organization Healthcare Address [address] [place] [address] Care Team Providers Care Receiver Bulk System Name Role Phone Jraed Wilson MD Primary Care Provider Social History Tobacco Use Types Packs/Day Years Used Date Smoking Tobacco: Never Assessed Comments Unknown Sex and Gender Information Value Date Recorded Sex Assigned at Not on file Legal Sex Female 6:40 PM EDT Gender Identity Not on file Sexual Orientation Not on file Plan of Treatment Health Maintenance Due Date Last Done Comments [facility]-Depression Screening 1965 [facility]-/Child/Adol SDOH Screenings 1965 [facility]- SDOH Screenings 1982 [facility]-Adult SDOH Screenings 1982 [facility]-Pap Smear 1985 [facility]-Cervical Cancer Screening 1994 [facility]-HPV/Cotest 1994 CT Colonography 2009 Colonoscopy 2009 FIT-DNA 2009 FIT 2009 FOBT 2009 Sigmoidoscopy 2009 [facility]-Colorectal Cancer Screening 2009 [facility]-Pneumococcal Vaccine: 50 + Years (1 of 1 - PCV) 2014 [facility]-Zoster Vaccines (1 of 2) 2014 [id number] Vaccine (1 - 20 24-25 season) 2024 [facility]-Influenza Vaccine (#1) 2024 [facility]-DTaP,Tdap,and Td Vaccine s (2 - Td or Tdap) 09/08/2032 09/08/2022 [facility]-RSV Vaccine: 60+ Years o r (1 - 1-dose 75+ series) 2039 [facility]-Breast Cancer Screening Discontinued 02/24/2017 HPV Vaccines Aged Out No longer eligi ble based on patient's age to complete this topic [facility]-HIB Vaccines Aged Out No longer e ligible based on patient's age to complete this topic [facility]-Hepatitis A Vaccines Aged Out No longer eligible based on patient's age to complete this topic [facility]-IPV Vaccines Aged Out No longer e ligible based on patient's age to complete this topic [facility]-Rotavirus Vaccines Aged Out No lo nger eligible based on patient's age to complete this topic Procedures Procedure Name Priority Date/Time Associated Diagnosis Comments MAMMOGRAPHY BREAST DIAGNOSTIC TOMOSYNTHESIS BILATERAL Routine 02/24/2017 12:00 PM EST from Last 3 Months or Most Recently Relevant to Health Maintenance Results * Mammography Breast Diagnostic Tomosynthesis Bilateral (02/24/2017 12:00 PM EST) Anatomical Region Laterality Modality Breast Bilateral Mammography Addenda Addendum by Dustin Christensen on 02/24/2017 12:26 PM EST Patient Name:Sherie Ruiz : 1965 Age: 51 Gender: femaleDate of Service: 02/24/2017 eferring Phy:Jared Wilson MDAccount: [id number] [place] [address] FINAL REPORT PROCEDURE: Tomosynthesis Diagnostic Bilateral - bilateral , Diagnostic Mammogram With CAD - bilateral , Right Breast Ultrasound limited and Axilla - right and Left Breast Ultrasound limited and Axilla - left ADDENDED REPORT 03/15/2017 at 16:06:46 Addendum: Today the patient requested to defer the left breast ultrasound guided biopsy. She would prefer to have a six month follow up mammogram and ultrasound. The risks, benefits, and alternatives were discussed with the patient. If the right breast stereotactic biopsy is malignant, performing the ultrasound biopsy at this time would need to be readdressed. Follow up imaging will be scheduled after the current right breast pathology results are obtained. IMPRESSION: BI-RADS Assessment Category 4A: Suspicious abnormality. ORIGINAL REPORT Impressions 03/15/2017 4:12 PM EST BI-RADS Assessment Category 4A: Suspicious abnormality. Page 2 of 3 Patient Name:Sherie Ruiz : 1965 Age: 51 Gender: femaleDate of Service: 02/24/2017 [facility] [id number] RECOMMENDATION: Finding 1: Stereotactic core needle biopsy is recommended in the middle third upper outer quadrant of the right breast located 5 centimeters from the nipple. Finding 2: Short term follow-up ultrasound of the right breast in 6 months. Finding 4: Ultrasound guided core biopsy is recommended in the left breast at 3 o'clock located 1 centimeter from the nipple. COMMUNICATION: The results and recommendations were discussed with the patient and a printed lay language version of the imaging report was given to the patient at the time of the visit. The mammogram was read with the assistance of CAD and tomosynthesis. Read By: Dustin Christensen M.D. Signed By: Dustin Christensen M.D. on 02/24/2017 at 12:20:53 PM Addendum Read by: Dustin Christensen M.D. on 03/15/2017 04:06:47 PM Addendum Signed by: Dustin Christensen M.D. on 03/15/2017 04:06:47 PM Page 3 of 3 Read By: DUSTIN CHRISTENSEN M.D. Signed By: DUSTIN CHRISTENSEN M.D. on 03/15/2017 at 16:06:36 Narrative 03/15/2017 4:12 PM EST REQUESTING PHYSICIAN: JARED WILSON REASON FOR EXAMINATION/PROCEDURE: diag mamm karyna, karyna us EXAMINATION / PROCEDURE: SAYDA DIAGNOSTIC KARYNA Feb 24 2017 - 10:38; ADDENDED REPORT 03/15/20 17 Addendum: Today the patient requested to defer the left breast ultrasound guided biopsy. She would prefer to have a six month follow up mammogram and ultrasound. The risks, benefits, and alternatives were discussed with the patient. If the right breast stereotactic biopsy is malignant, performing the ultrasound biopsy at this time would need to be readdressed. Follow up imaging will be scheduled after the current right breast pathology results are obtained. impression: BI-RAD S Assessment Category 4A: Suspicious abnormality. ORIGINAL REPORT HISTORY: Patient is 51 years old and is seen for a second opinion requested by the patient for evaluation of a calcifications in the right breast. The patient has the following family history of breast cancer: 3 maternal aunts. COMPARISON: The present examination has been compared to prior imaging studies performed at [facility] on 02/11/2017, and at an outside [facility] on 06/18/2013. MAMMOGRAM TECHNIQUE: The following mammographic views were obtained: bilateral craniocaudal; bilateral tomosynthesis images were obtained; bilateral mediolateral oblique; right mediolateral; right craniocaudal spot compr ession; and right tomosynthesis images were obtained spot compression. Computer assisted detection was used in the interpretation of this study. FINDINGS: MAMMOGRAM FINDINGS: The breast tissue is heterogeneously dense, which may obscure detection of small masses. Finding 1: There is an area of architectural distortion measuring 14 millimeters in the middle third upper outer quadrant of the right breast located 5 centimeters from the nipple. There is an area of architectura l distortion measuring 14 millimeters in the middle third upper outer quadrant of the right breast located 5 centimeters from the nipple. Seen best with tomosynthesis. Ultrasound was performed to further evaluate. Finding 2: The finding in question is not seen on mammogram. Finding 4: There is an oval mass in the left breast at 3 o'clock located 1 centimeter from the nipple. Appears similar to the prior 06-18-2013 study. Ultrasound was performed to further evaluate. The find ings are confirmed with tomosynthesis. ULTRASOUND FINDINGS: Finding 1: A focused ultrasound was performed in the right breast at 11 o'clock 4 cm from the nipple using a radial and anti-radial approach. Ultrasound demonstrates an avascular a erin with indistinct margins measuring 9 millimeters in the middle third upper outer quadrant of the right breast located 5 centimeters from the nipple. Internal echotexture is hypoechoic. This may correlate with the mammographic finding. Fin ding 2: A focused ultrasound was performed in the right breast at 11 o'clock 4 cm from the nipple using a radial and anti-radial approach. There is an oval avascular mass with circumscribed margins measuring 8 millimeters in the right breast at 11 o'clock located 4 centimeters from the nipple, parallel to the skin. Internal echotexture is hypoechoic. The finding is soft on elastography. Finding 3: A focused ultrasound was performed in the right breast at 12 o'clock 2 cm from the n ipple using a radial and anti-radial approach. There is an oval avascular simple cyst with circumscribed margins measuring 5 x 3 x 5 mm in the right breast at 12 o'clock located 2 centimeters from the nipple, parallel to the skin. Internal echot exture is anechoic. The finding is soft on elastography. Finding 4: A focused ultrasound was performed in the left breast at 3 o'clock 1 cm from the nipple using a radial and anti-radial approach. Ultrasound demonstrates an oval avascular ma ss with circumscribed margins measuring 8 mm, parallel to the skin in the left breast at 3 o'clock located 1 centimeter from the nipple. Internal echotexture is hypoechoic. The finding is hard on elastography. This correlates with the mammogr aphic finding. IMPRESSION: BI-RADS Assessment Category 4A: Suspicious abnormality. RECOMMENDATION: Finding 1: Stereotactic core needle biopsy is recommended in the middle third upper outer quadrant of the right breast located 5 centimete rs from the nipple. Finding 2: Short term follow-up ultrasound of the right breast in 6 months. Finding 4: Ultrasound guided core biopsy is recommended in the left breast at 3 o'clock located 1 centimeter from the nipple. COMMUNICATIO N: The results and recommendations were discussed with the patient and a printed lay language version of the imaging report was given to the patient at the time of the visit. The mammogram was read with the assistance of CAD and tomosynthesis. Read By: Dustin Christensen M.D. Signed By: Dustin Christensen M.D. on 02/24/2017 at 12:20:53 PM Read By: DUSTIN CHRISTENSEN M.D. Signed By: DUSTIN CHRISTENSEN M.D. on 03/15/2017 at 16:06:36 Verified by: DUSTIN CHRISTENSEN M.D. on Mar 15 2017 4:11P Tra nscribed by: [facility] on Mar 15 2017 4:11P Dictated by: DUSTIN CHRISTENSEN M.D. on Mar 15 2017 4:11P HISTORY: Patient is 51 years old and is seen for a second opinion requested by the patient for evaluation of a calcifications in the right breast. The patient has the following family history of breast cancer: 3 maternal aunts. COMPARISON: The present examination has been compared to prior imaging studies performed at [facility] on 02/11/2017, and at an outside location on 06/18/2013. MAMMOGRAM TECHNIQUE: The following mammographic views were obtained: bilateral craniocaudal; bilateral tomosynthesis images were obtained; bilateral mediolateral oblique; right mediolateral; right craniocaudal spot compression; and right tomosynthesis images were obtained spot compression. Computer assisted detection was used in the interpretation of this study. Page 1 of 3 Patient Name:Sherie Ruiz : 1965 Age: 51 Gender: femaleDate of Service: 02/24/2017 eferring [facility] [phone] FINDINGS: MAMMOGRAM FINDINGS: The breast tissue is heterogeneously dense, which may obscure detection of small masses. Finding 1: There is an area of architectural distortion measuring 14 millimeters in the middle third upper outer quadrant of the right breast located 5 centimeters from the nipple. There is an area of architectural distortion measuring 14 millimeters in the middle third upper outer quadrant of the right breast located 5 centimeters from the nipple. Seen best with tomosynthesis. Ultrasound was performed to further evaluate. Finding 2: The finding in question is not seen on mammogram. Finding 4: There is an oval mass in the left breast at 3 o'clock located 1 centimeter from the nipple. Appears similar to the prior 06-18-2013 study. Ultrasound was performed to further evaluate. The findings are confirmed with tomosynthesis. ULTRASOUND FINDINGS: Finding 1: A focused ultrasound was performed in the right breast at 11 o'clock 4 cm from the nipple using a radial and anti-radial approach. Ultrasound demonstrates an avascular area with indistinct margins measuring 9 millimeters in the middle third upper outer quadrant of the right breast located 5 centimeters from the nipple. Internal echotexture is hypoechoic. This may correlate with the mammographic finding. Finding 2: A focused ultrasound was performed in the right breast at 11 o'clock 4 cm from the nipple using a radial and anti-radial approach. There is an oval avascular mass with circumscribed margins measuring 8 millimeters in the right breast at 11 o'clock located 4 centimeters from the nipple, parallel to the skin. Internal echotexture is hypoechoic. The finding is soft on elastography. Finding 3: A focused ultrasound was performed in the right breast at 12 o'clock 2 cm from the nipple using a radial and anti-radial approach. There is an oval avascular simple cyst with circumscribed margins measuring 5 x 3 x 5 mm in the right breast at 12 o'clock located 2 centimeters from the nipple, parallel to the skin. Internal echotexture is anechoic. The finding is soft on elastography. Finding 4: A focused ultrasound was performed in the left breast at 3 o'clock 1 cm from the nipple using a radial and anti-radial approach. Ultrasound demonstrates an oval avascular mass with circumscribed margins measuring 8 mm, parallel to the skin in the left breast at 3 o'clock located 1 centimeter from the nipple. Internal echotexture is hypoechoic. The finding is hard on elastography. This correlates with the mammographic finding. Procedure Note Dustin Christensen - 08/17/2020 REQUESTING PHYSICIAN: JARED WILSON REASON FOR EXAMINATION/PROCEDURE: diag mamm karyna, karyna us EXAMINATION / PROCEDURE: SAYDA DIAGNOSTIC KARYNA Feb 24 2017 - 10:38; ADDENDED REPORT 03/15/20 Addendum: Today the patient requested to defer the left breast ultrasound guided biopsy. She would prefer to have a six month follow up mammogram and ultrasound. The risks, benefits, and alternatives were discussed with the patient. If the right breast stereotactic biopsy is malignant, performing the ultrasound biopsy at this time would need to be readdressed. Follow up imaging will be scheduled after the current right breast pathology results are obtained. impression: BI-RAD S Assessment Category 4A: Suspicious abnormality. ORIGINAL REPORT HISTORY: Patient is 51 years old and is seen for a second opinion requested by the patient for evaluation of a calcifications in the right breast. The patient has the following family history of breast cancer: 3 maternal aunts. COMPARISON: The present examination has been compared to prior imaging studies performed at [facility] on 02/11/2017, and at an outside [facility] on 06/18/2013. MAMMOGRAM TECHNIQUE: The following mammographic views were obtained: bilateral craniocaudal; bilateral tomosynthesis images were obtained; bilateral mediolateral oblique; right mediolateral; right craniocaudal spot compr ession; and right tomosynthesis images were obtained spot compression. Computer assisted detection was used in the interpretation of this study. FINDINGS: MAMMOGRAM FINDINGS: The breast tissue is heterogeneously dense, which may obscure detection of small masses. Finding 1: There is an area of architectural distortion measuring 14 millimeters in the middle third upper outer quadrant of the right breast located 5 centimeters from the nipple. There is an area of architectura l distortion measuring 14 millimeters in the middle third upper outer quadrant of the right breast located 5 centimeters from the nipple. Seen best with tomosynthesis. Ultrasound was performed to further evaluate. Finding 2: The finding in question is not seen on mammogram. Finding 4: There is an oval mass in the left breast at 3 o'clock located 1 centimeter from the nipple. Appears similar to the prior 06-18-2013 study. Ultrasound was performed to further evaluate. The find ings are confirmed with tomosynthesis. ULTRASOUND FINDINGS: Finding 1: A focused ultrasound was performed in the right breast at 11 o'clock 4 cm from the nipple using a radial and anti-radial approach. Ultrasound demonstrates an avascular a erin with indistinct margins measuring 9 millimeters in the middle third upper outer quadrant of the right breast located 5 centimeters from the nipple. Internal echotexture is hypoechoic. This may correlate with the mammographic finding. Fin ding 2: A focused ultrasound was performed in the right breast at 11 o'clock 4 cm from the nipple using a radial and anti-radial approach. There is an oval avascular mass with circumscribed margins measuring 8 millimeters in the right breast at 11 o'clock located 4 centimeters from the nipple, parallel to the skin. Internal echotexture is hypoechoic. The finding is soft on elastography. Finding 3: A focused ultrasound was performed in the right breast at 12 o'clock 2 cm from the n ipple using a radial and anti-radial approach. There is an oval avascular simple cyst with circumscribed margins measuring 5 x 3 x 5 mm in the right breast at 12 o'clock located 2 centimeters from the nipple, parallel to the skin. Internal echot exture is anechoic. The finding is soft on elastography. Finding 4: A focused ultrasound was performed in the left breast at 3 o'clock 1 cm from the nipple using a radial and anti-radial approach. Ultrasound demonstrates an oval avascular ma ss with circumscribed margins measuring 8 mm, parallel to the skin in the left breast at 3 o'clock located 1 centimeter from the nipple. Internal echotexture is hypoechoic. The finding is hard on elastography. This correlates with the mammogr aphic finding. IMPRESSION: BI-RADS Assessment Category 4A: Suspicious abnormality. RECOMMENDATION: Finding 1: Stereotactic core needle biopsy is recommended in the middle third upper outer quadrant of the right breast located 5 centimete rs from the nipple. Finding 2: Short term follow-up ultrasound of the right breast in 6 months. Finding 4: Ultrasound guided core biopsy is recommended in the left breast at 3 o'clock located 1 centimeter from the nipple. COMMUNICATIO N: The results and recommendations were discussed with the patient and a printed lay language version of the imaging report was given to the patient at the time of the visit. The mammogram was read with the assistance of CAD and tomosynthesis. Read By: Dustin Christensen M.D. Signed By: Dustin Christensen M.D. on 02/24/2017 at 12:20:53 PM Read By: DUSTIN CHRISTENSEN M.D. Signed By: DUSTIN CHRISTENSEN M.D. on 03/15/2017 at 16:06:36 Verified by: DUSTIN CHRISTENSEN M.D. on Mar 15 2017 4:11P Tra nscribed by: DAVID on Mar 15 2017 4:11P Dictated by: DUSTIN CHRISTENSEN M.D. on Mar 15 2017 4:11P HISTORY: Patient is 51 years old and is seen for a second opinion requested by thepatient for evaluation of a calcifications in the right breast. The patient has the following family history ofbreast cancer: 3 maternal aunts. COMPARISON: The present examination has been [facility] and at an outside location on 06/18/2013. MAMMOGRAM TECHNIQUE: The following mammographic views were obtained: bilateral craniocaudal;bilateral tomosynthesis images were obtained; bilateral mediolateral oblique; right mediolateral; right craniocaudalspot compression; and right tomosynthesis images were obtained spot compression. Computer assisted detection wasused in the interpretation of this study. Page 1 of 3 Patient Name:Sherie Ruiz : 1965 Age: 51 Gender: femaleDate of Service:02/24/2017 eferring Phy[facility] Wilson[facility] [phone] FINDINGS: MAMMOGRAM FINDINGS: The breast tissue is heterogeneously dense, which may obscure detection ofsmall masses. Finding 1: There is an area of architectural distortion measuring 14millimeters in the middle third upper outer quadrant of the right breast located 5 centimeters from the nipple. Thereis an area of architectural distortion measuring 14 millimeters in the middle third upper outer quadrant of theright breast located 5 centimeters from the nipple. Seen best with tomosynthesis. Ultrasound was performed to furtherevaluate. Finding 2: The finding in question is not seen on mammogram. Finding 4: There is an oval mass in the left breast at 3 o'clock located1 centimeter from the nipple. Appears similar to the prior 06-18-2013 study. Ultrasound was performed to furtherevaluate. The findings are confirmed with tomosynthesis. ULTRASOUND FINDINGS: Finding 1: A focused ultrasound was performed in the right breast at 11o'clock 4 cm from the nipple using a radial and anti-radial approach. Ultrasound demonstrates an avascular area withindistinct margins measuring 9 millimeters in the middle third upper outer quadrant of the right breast located 5centimeters from the nipple. Internal echotexture is hypoechoic. This may correlate with the mammographicfinding. Finding 2: A focused ultrasound was performed in the right breast at 11o'clock 4 cm from the nipple using a radial and anti-radial approach. There is an oval avascular mass withcircumscribed margins measuring 8 millimeters in the right breast at 11 o'clock located 4 centimeters from the nipple, parallelto the skin. Internal echotexture is hypoechoic. The finding is soft on elastography. Finding 3: A focused ultrasound was performed in the right breast at 12o'clock 2 cm from the nipple using a radial and anti-radial approach. There is an oval avascular simple cyst withcircumscribed margins measuring 5 x 3 x 5 mm in the right breast at 12 o'clock located 2 centimeters from the nipple,parallel to the skin. Internal echotexture is anechoic. The finding is soft on elastography. Finding 4: A focused ultrasound was performed in the left breast at 3o'clock 1 cm from the nipple using a radial and anti-radial approach. Ultrasound demonstrates an oval avascular masswith circumscribed margins measuring 8 mm, parallel to the skin in the left breast at 3 o'clock located 1 centimeterfrom the nipple. Internal echotexture is hypoechoic. The finding is hard on elastography. This correlates with themammographic finding. IMPRESSION: BI-RADS Assessment Category 4A: Suspicious abnormality. Page 2 of 3 Patient Name:Sherie Ruiz : 1965 Age: 51 Gender: femaleDate of Service:02/24/2017 eferring Phy[facility] [phone] RECOMMENDATION: Finding 1: Stereotactic core needle biopsy is recommended in the middlethird upper outer quadrant of the right breast located 5 centimeters from the nipple. Finding 2: Short term follow-up ultrasound of the right breast in 6months. Finding 4: Ultrasound guided core biopsy is recommended in the leftbreast at 3 o'clock located 1 centimeter from the nipple. COMMUNICATION: The results and recommendations were discussed with the patient and aprinted lay language version of the imaging report was given to the patient at the time of the visit. The mammogramwas read with the assistance of CAD and tomosynthesis. Read By: Dustin Christensen M.D. Signed By: Dustin Christensen M.D. on 02/24/2017 at 12:20:53 PM Addendum Read by: Dustin Christensen M.D. on 03/15/2017 04:06:47 PM Addendum Signed by: Dustin Christensen M.D. on 03/15/2017 04:06:47 PM Page 3 of 3 Read By: DUSTIN CHRISTENSEN M.D. Signed By: DUSTIN CHRISTENSEN M.D. on 03/15/2017 at 16:06:36 Jared Wilson MD IMG BI PROCEDURES Edite d Result - Final from Last 3 Months or Most Recently Relevant to Health Maintenance Insurance [employer] Care Teams Receiver Bulk System Relationship Specialty Start Date End Date Jared Wilson MD [address] [facility] [address] [place] [address] PCP - General 08/22/20
--- OUTSIDE RECORDS SUMMARY | 2024-12-14 18:28 | XMS_ITS | Encounter Summary ---
Author Organization Healthcare Address [address] [place] [address] Care Team Providers Care Leadership Recruiter Name Role Phone Nuria Wilson MD Primary Care Provider Reason for Referral * Consultation (Routine) - Authorized Specialty Diagnoses / Procedures Referred By Contac t Referred To Contact Gynecology / Obstetrics and Gynecology Diagnoses Cervical cancer screening Nuria Wilson MD [address] [place] [address] Phone: tel: fax: Obstetrics & Gynecology [address] [place] [phone] Phone: tel: fax: Referral ID Status Reason Start Date Expiration Date Visits Requested Visits Authorized [id number] Authorized Specialty Services Required 09/08/2023 03/09/2025 1 1 Encounter Details Date Type Department Care Team (Late st Contact Info) Description 09/08/2023 Community Orders Community Practice [address] [place] [address] Nuria Wilson MD [address] [place] [address] Cervical cancer screening (Primary Dx) Social History Tobacco Use Types Packs/Day Years Used Date Smoking Tobacco: Never Assessed Comments Unknown Sex and Gender Information Value Date Recorded Sex Assigned at Not on file Legal Sex Female 6:40 PM EDT Gender Identity Not on file Sexual Orientation Not on file documented as of this encounter Plan of Treatment Scheduled Referrals Name Type Priority Associated Diagnoses Order Schedule Ambulatory referral to Gynecology Outpatient Referral Routine Cervical cancer screening Expected: 09/08/2023 (Approximate), Expires: 03/10/2025 documented as of this encounter Visit Diagnoses Diagnosis Cervical cancer screening- Primary Screening for malignant neoplasm of the cervix documented in this encounter Care Teams Leadership Recruiter Relationship Specialty Start Date End Date Nuria Wilson MD [address] [place] [address] PCP - General 08/22/20 documented as of this encounter
--- OUTSIDE RECORDS SUMMARY | 2024-12-14 18:28 | XMS_ITS | Encounter Summary ---
[facility] Address [address] [place] [address] Care Team Providers Care Professor Of Biological Sciences Name Role Phone Nuria Wilson MD Primary Care Provi kemal Encounter Details Date Type Department Care Team (Late st Contact Info) Description 12/14/2024 Telephone [facility] [address] [address] Nuria Wilson MD 120 [facility] [address] [place] [address] Social History Tobacco Use Types Packs/Day Years [...] encounter Miscellaneous Notes * Telephone Encounter - Estrella Alicea MA - 12/14/2024 5:01 PM EDT Spoke with Dr. Wilson and she advised patient to go er to be Monitored. Patient verbalized understanding and agreed to go ER no further action needed. * Telephone Encounter - Nazia Pacheco RegSched Rep - 12/14/2024 4:19 PM EDT Pt called and stated that she took 2 lisinoprils and 2 diltiazem 360. Her heart rate has been in the 50s all morning and her current hr is 64, bp is 118/75.pt stated that this bp reading is lower than normal . Pt would like to speak with a nurse documented in this encounter Plan of Treatment Upcoming Encounters Date Type Department Care Team (Late st Contact Info) Description 01/02/2025 10:30 AM EDT Office Visit [facility] [address] [place] [phone] Maye Castro, MINERAL ENGINEER [address] [place] [address] documented as of this encounter Visit Diagnoses Not on filedocumented in this encounter Care Teams Professor Of Biological Sciences Relationship Specialty Start Date End Date Nuria Wilson MD [address] [place] [address] PCP - General Internal Medicine 10/25/16 documented as of this encounter
[2024-12-14 18:29] LABS: Microscopic, Urine URINE MICROSCOPIC (MICROSCOPIC)
--- OUTSIDE RECORDS SUMMARY | 2024-12-14 18:29 | XMS_ITS | Encounter Summary ---
Author Organization [facility] Address [address] [place] [address] Care Team Providers Care Multimedia Assistant Name Role Phone Nuria Wilson MD Primary Care Provi kemal Encounter Details Date Type Department Care Team (Late st Contact Info) Description 02/14/2017 Telephone [facility] [address] [place] [phone] Esau Brandon Social History Tobacco Use Types Packs/Day Years Used Date Smoking Tobacco: Former Cigarettes 5 - 2014 Electronic Cigarette Smokeless Tobacco: Never Comments:e-cig 2 per day Alcohol Use Standard Drinks/Week Comments No 0 (1 standard drink = 0.6 oz pur e alcohol) Comments No Sex and Gender Information Value Date Recorded Sex Assigned at Not on file Legal Sex Female 9:20 AM EST Gender Identity Not on file Sexual Orientation Not on file Occupation Industry Job Start Date Job End Date Retired Not on file Not on file Not on file documented as of this encounter Miscellaneous Notes * Telephone Encounter - Esau Brandon - 02/14/2017 2:16 PM EST Spoke with patient about overdue anticoag appt. Pt said she is going to PCP today and would like tojust have them draw the PT/INR and have it sent to us. Pt also informed me she will likely have to have a biopsy performed on mass on her breast and will likely have to go off warfarin. She states she has already emailed Dr Zavala requesting clearance togo off warfarin for procedure. Pt also told me that she will have to change insurance at the first of the year and will likely have to switch to [facility] or [facility] anticoagulation clinic. She stated she may go ahead and switchto one of those clinics now so she will be in their care of once the insurance switch happens. documented in this encounter Plan of Treatment Upcoming Encounters Date Type Department Care Team (Late st Contact Info) Description 01/02/2025 10:30 AM EDT Office Visit [facility] [address] [facility] [place] [address] Maye Castro, JUHI [address] [place] [address] documented as of this encounter Visit Diagnoses Not on filedocumented in this encounter Care Teams Multimedia Assistant Relationship Specialty Start Date End Date Nuria Wilson MD [address] [place] [address] PCP - General Internal Medicine 10/25/16 documented as of this encounter
--- OUTSIDE RECORDS SUMMARY | 2024-12-14 18:29 | XMS_ITS | Encounter Summary ---
[facility] [address] [place] [address] Care Team Providers Care Clinical Informatics Physician Name Role Phone Nuria Wilson MD Primary Care Provi kemal Reason for Visit * Reason Comments Med Refill Encounter Details Date Type Department Care Team (Late Contact Info) Description 03/29/2022 Refill [facility] [address] [facility] [address] Nuria Wilson MD 120 [facility] [address] [place] [id number] Essential hypertension Social History Tobacco Use Types Packs/Day Years Used Date Smoking Tobacco: Every Day Cigarettes 1.5 30 Started: 1984; Last attempted to quit: 2014 Smokeless Tobacco: Never Alcohol Use Standard Drinks/Week Comments No 0 (1 standard drink = 0.6 oz pur e alcohol) PHQ-2 Answer Date Recorded Retired Total Score 0 06/04/2020 Comments No Sex and Gender Information Value [...] Description 01/02/2025 10:30 AM EDT Office Visit [facility] [address] [place] [address] Maye Castro, JUHI [address] [place] [address] documented as of this encounter Visit Diagnoses Diagnosis Essential hypertension Unspecified essential hypertension documented in this encounter Care Teams Clinical Informatics Physician Relationship Specialty Start Date End Date Nuria Wilson MD [address] [place] [address] PCP - General Internal Medicine 10/25/16 documented as of this encounter
--- OUTSIDE RECORDS SUMMARY | 2024-12-14 18:29 | XMS_ITS | Encounter Summary ---
[facility] [address] [place] [address] Care Team Providers Care Breaker Up Name Role Phone Nuria Wilson MD Primary Care Provi kemal Reason for Visit * Reason Onset Date Comments Med Refill 05/22/2021 Encounter Details Date Type Department Care Team (Late st Contact Info) Description 05/22/2021 Refill [facility] [address] [address] Nuria Wilson MD 120 [facility] [address] [place] [address] Essential hypertension Social History Tobacco Use Types [...] Description 01/02/2025 10:30 AM EDT Office Visit [facility] [address] [address] Maye Castro APRN [address] [place] [address] documented as of this encounter Visit Diagnoses Diagnosis Essential hypertension Unspecified essential hypertension documented in this encounter Care Teams Breaker Up Relationship Specialty Start Date End Date Nuria Wilson MD [address] [place] [address] PCP - General Internal Medicine 10/25/16 documented as of this encounter
--- OUTSIDE RECORDS SUMMARY | 2024-12-14 18:29 | XMS_ITS | Clinical Summary ---
Author Organization [facility] Address [address] [place] [address] Care Team Providers Care Director Statistical Programming Name Role Phone Nuria Wilson MD Primary Care Provi kemal Allergies Active Allergy Reactions Criticality Noted Date Comments Egg-Derived Products Diarrhea,Nausea And Vomiting 01/10/2017 Hydrochlorothiazide Diarrhea 11/26/2020 Diphenhydramine Other (See Comments) 11/26/2022 . Monosodium Glutamate Palpitations Low 01/10/2017 Mushroom Extract Complex (Obsolete) Diarrhea,Nausea And Vomiting 01/10/2017 Hydrocodone-Acetaminophen Nausea Only 7 Medications * This document contains information received from the source organization and may not represent a complete record from that organization. ALPRAZolam (XANAX) 0.5 MG tabletIndicatio ns:Anxiety Take 1 tablet by mouth Daily As Needed for Anxiety. 30 tablet 06/04/19 23 Active pantoprazole (PROTONIX) 40 MG EC tabletIndicatio ns:Chronic abdominal pain TAKE 1 TABLET BY MOUTH ONCE DAILY 90 tablet 2 03/16/20 23 Active cloNIDine (CATAPRES) 0.1 MG tabletIndicatio ns:Essential hypertension TAKE ONE TABLET BY MOUTH DAILY NEEDED FOR SYSTOLIC BLOOD PRESSURE GREATER THAN 180 AND DIASTOLIC BLOOD PRESSURE GREATER THAN 100 *MAX OF 1 TABLET DAILY 90 tablet 02/20/20 24 Active Ventolin HFA 108 (90 Base) MCG/ACT inhaler Inhale 1 puff Every 4 (Four) Hours As Needed for Shortness of Air. 18 g 1 02/20/20 24 Active furosemide (LASIX) 20 MG tabletIndicatio ns:Essential hypertension Take 1 tablet by mouth Daily As Needed (edema). 90 tablet 1 02/20/20 24 Active potassium chloride 10 MEQ CR tabletIndicatio ns:Essential hypertension Take 1 tablet by mouth Daily. 90 tablet 1 02/20/20 24 Active dilTIAZem CD (CARDIZEM CD) 360 MG 24 hr capsule Take 1 capsule by mouth Daily. Appointment needed for further refills. 90 capsule 1 03/28/20 24 Active Fluticasone-Prasad meterol (ADVAIR/WIXELA) 250-50 MCG/ACT DISKUS Inhale 1 puff 2 (Two) Times a Day. 60 each 5 07/10/19 25 Active zolpidem CR (AMBIEN CR) 12.5 MG CR tablet TAKE ONE TABLET BY MOUTH AT BEDTIME NEEDED FOR SLEEP 30 tablet 2 09/11/19 25 Active dilTIAZem (TIAZAC) 360 MG 24 hr capsule TAKE ONE CAPSULE BY MOUTH ONCE A DAY 90 capsule 1 10/06/19 25 Active lisinopril (PRINIVIL,ZESTR IL) 40 MG tablet TAKE ONE TABLET BY MOUTH ONCE A DAY 90 tablet 1 10/06/19 25 Active bisoprolol (ZEBeta) 5 MG tablet TAKE ONE TABLET BY MOUTH ONCE A DAY 90 tablet 11/20/19 25 Active bisoprolol (ZEBeta) 5 MG tablet Take 1 tablet by mouth Daily. 90 tablet 1 03/28/20 24 025 Discontinued Active Problems Problem Noted Date Diagnosed Date OSMANY on CPAP 01/06/2017 Mixed hyperlipidemia 08/25/2016 Anxiety 08/25/2016 Essential hypertension 08/25/2016 Insomnia 08/25/2016 Atrial fibrillation 08/20/2016 Overview (01/05/2017): A. CHADS-Vasc = 2, [facility]. The[facility] since August 2016 B. Diagnosed approx early 2015 C. TTE 12/24/15: EF 60-65%, LA grossly normal , trace TR D. Lexiscan 02/05/16: reportedly normal per pt, data deficient ([facility] in [place]) E. Flecainide initiated 08/20/16 w/reduction in episodes, but still present. PVA scheduled. Resolved Problems Problem Noted Date Diagnosed Date Resolved Date Otorrhea of left ear 01/15/2017 018 Persistent atrial fibrillation 01/11/2017 02/07/2018 Persistent atrial fibrillation 12/03/2016 12/17/2016 Overview (12/03/2016): Added automatically from request for surgery [id number] Chronic anticoagulation 08/25/201601/11 Encounters Date Type Department Care Team Description 12/14/[address] [facility] [address] [place] [address] Nuria Wilson MD 11/19/[address] [facility] [address] [place] [address] Nuria Wilson MD 10/05/[address] [facility] [address] [place] [address] Nuria Wilson MD from Last 3 Months Immunizations Immunization Administration Dates Next Due Tdap 09/08/2022 Family History Medical History Relation Name Comments Alcohol abuse Father Ceasr Dementia Father Cesar Diabetes Father Cesar Heart disease Father Cesar Hypertension Father Cesar Cancer Mother Marge Colon cancer Mother Margmaria luz Depression Mother Marge Diabetes Mother Marge Hypertension Paternal Grandmother Pratima Stroke Paternal Grandmother Pratima Diabetes Sister Relation Name Status Comments Father Cesar Mother Marge Paternal Grandmother Pratima Sister Alive Social History Tobacco Use Types Packs/Day Years Used Date Smoking Tobacco: Light Smoker Cigarettes 1.5 46.7 Started: 016; Last attempted to quit: 04/11/2014 Passive Smoke Exposure: Current Smokeless Tobacco: Never Tobacco Cessation:Ready to Q uit: Not Asked; Counseling Given: Not Answered Alcohol Use Standard Drinks/Week Comments No 0 [...] file Not on file Not on file Last Filed Vital Signs Vital Sign Reading Time Taken Comments Blood Pressure 110/70 12/28/2023 10:09 AM EDT Pulse 52 12/28/2023 10:09 AM EDT Temperature 36.1 C (96.9 F) 12/26/2020 2:02 PM EDT Respiratory Rate 16 06/04/2020 3:18 PM EST Oxygen Saturation 92% 12/28/2023 10:09 AM EDT Inhaled Oxygen Concentration - - Weight 107 kg (235 lb 3.2 oz) 12/28/2023 10:09 A M EDT Height 170.2 cm (5' 7 ) 12/28/2023 10:09 AM EDT Body Mass Index 36.84 12/28/2023 10:09 AM EDT Plan of Treatment Upcoming Encounters Date Type Department Care Team (Late st Contact Info) Description 01/02/2025 10:30 AM EDT Office Visit [facility] [address] [place] [address] Maye Castro, IRON CUTTER [address] [place] [address] Health Maintenance Due Date Last Done Comments Annual Gynecologic Pelvic an d Breast Exam 1964 Pneumococcal Vaccine 50+ (1 of 2 - PCV) 1983 PAP SMEAR 1985 COLON CANCER SCREENING 5 YEA R SIGMOID[address]COPY [address] COLONOGRAPHY 2009 FECAL OCCULT BLOOD TEST 2009 FIT Testing (1 year) 2009 ZOSTER VACCINE (1 of 2) 2014 ANNUAL PHYSICAL 12/26/2021 12/26/2020 LIPID PANEL 09/06/2024 09/07/2023, 05/12, 11/26/2020 MAMMOGRAM 11/15/2024 11/15/2022, 08/2016, 02/24/2017, Additional history exists INFLUENZA VACCINE 01/09/2025 COLOGUARD 03/25/2025 03/25/2022, 10/10, 11/05/2021, Additional history exists COLONOSCOPY 02/12/2031 02/12/2021, 07/2020, 02/12/2021 COLORECTAL CANCER SCREENING 02/12/2031 TDAP/TD VACCINES (2 - Td or Tdap) 09/08/2032 023 LUNG CANCER SCREENING Discontinued 01/10/2017 HEPATITIS C SCREENING Completed 12/26/2020 COVID-19 Vaccine Discontinued Procedures Procedure Name Priority Date/Time Associated Diagnosis Comments LIPID PANEL Routine 09/07/2023 3:09 PM EDT Lightheadedness MAMMO DIAGNOSTIC DIGITAL TOMOSYNTHESIS BILATERAL W CAD Routine 11/15/2022 History of abnormal mammogram SCANNED - COLOGUARD 03/25/2022 SCANNED - COLONOSCOPY 02/12/2021 HEPATITIS C ANTIBODY Routine 12/26/2020 2:37 PM EDT Encounter for hepatitis C screening test for low risk patient CT ANGIOGRAM CHEST W WO CONTRAST Routine 01/10/2017 2:30 PM EDT Persistent atrial fibrillation from Last 3 Months or Most Recently Relevant to Health Maintenance Results * (ABNORMAL) Lipid Panel (09/07/2023 3:09 PM EDT) Total Cholesterol 207(H) 0 - 200 mg/dL 09/08/2023 12:45 AM EDT [facility] Triglycerides 281(H) 0 - 150 mg/dL 09/08/2023 12:45 AM EDT [facility] HDL Cholesterol 32(L) 40 - 60 mg/dL 09/08/2023 12:45 AM EDT [facility] LDL Cholesterol 125(H) 0 - 100 mg/dL 09/08/2023 12:45 AM EDT [facility] VLDL Cholesterol 50(H) 5 - 40 mg/dL 09/08/2023 12:45 AM T [facility] LDL/HDL Ratio 3.71 09/08/2023 12:45 AM T [facility] Blood Structure of right upper limb / Unknown Venipuncture / Unknown 09/07/2023 3:09 PM EDT 09/07/2023 3:09 PM EDT Narrative [facility] - 09/08/2023 12:45 AM EDT Cholesterol Reference Ranges (U.S. Department of Health and Human Services ATP III Classifications) Desirable <200 mg/dL Borderline High 200-239 mg/dL High Risk >240 mg/dL Triglyceride Reference Ranges (U.S. Department of Health and Human Services ATP III Classifications) Normal <150 mg/dL Borderline High 150-199 mg/dL High 200-499 mg/dL Very High >500 mg/dL HDL Reference Ranges (U.S. Department of Health and Human Services ATP III Classifications) Low <40 mg/dl (major risk factor for CHD) High >60 mg/dl ('negative' risk factor for CHD) LDL Reference Ranges (U.S. Department of Health and Human Services ATP III Classifications) Optimal <100 mg/dL Near Optimal 100-129 mg/dL Borderline High 130-159 mg/dL High 160-189 mg/dL Very High >189 mg/dL Nuria Wilson MD LAB BLOOD ORDERABLE S Final Result Performing Organization Address [facility] Co de Phone Number [facility]
[address] [place] [address], * Mammo diagnostic digital tomosynthesis bilateral w CAD (11/15/2022) Anatomical Region Laterality Modality Breast Bilateral Mammography Nuria Wilson MD IMG MAMMOGRAPHY ORD ERABLES Final Result * SCANNED - COLOGUARD (03/25/2022) Nuria Wilson MD LAB BLOOD ORDERABLE S Final Result * SCANNED - COLONOSCOPY (02/12/2021) Krishan Calhoun MD CHART REVIEW TABS Final Result * Hepatitis C Antibody (12/26/2020 2:37 PM EDT) Hepatitis C Ab Non-Reacti ve Non-Reacti ve 12/27/2020 12:30 AM EDT [facility] Blood Venipuncture / Unknown 12/26/2020 2:37 PM EDT 12/26/2020 2:37 PM EDT Narrative [facility] - 12/27/2020 12:30 AM EDT Results may be falsely decreased if patient taking Biotin. Nuria Wilson MD LAB BLOOD ORDERABLE S Final Result Performing Organization Address City/[facility]/ZIP Co de Phone Number [facility]
[address] [place] [address], * CT Angiogram Chest With & Without Contrast (01/10/2017 2:30 PM EDT) Anatomical Region Laterality Modality Chest, Vascular N/A Computed Tomogra phy 01/11/2017 10:3 6 AM EDT Impressions 01/11/2017 2:49 PM EDT Mild dilatation identified of the ascending thoracic aorta. The remainder of the examination is grossly unremarkable. E: 01/11/2017 This report was finalized on 01/11/2017 2:[address] Angeli Sanchez MD. Narrative 01/11/2017 2:49 PM EDT EXAMINATION: CT ANGIOGRAM CHEST W WO CONTRAST- 01/10/2017 INDICATION: I48.1-Persistent atrial fibrillation; preablation TECHNIQUE: Multiple axial CT imaging was obtained of the chest from the great vessels through the lung bases following the administration of intravenous contrast according to the CT angio protocol. Coronal 2-D reformatted images were submitted to further facilitate diagnostic accuracy and treatment planning. The radiation dose reduction device was turned on for each scan per the ALARA (As Low as Reasonably Achievable) protocol. COMPARISON: None. FINDINGS: The ascending thoracic aorta is mildly dilated at 3.8 cm. There is no significant atherosclerotic disease seen within the coronary vessels. No filling defect in the pulmonary arteries or veins to suggest evidence of embolism. Cardiac chambers within normal limits. No thrombus in the left atrial appendage. There is no pulmonary venous anomaly. No ostial narrowing. The esophagus lies posterior to the left atrium and left inferior pulmonary vein. The cardiac chambers are otherwise unremarkable. No pericardial effusion. No bulky hilar or axillary lymphadenopathy. Degenerative changes seen within the spine. The visualized lung parenchyma is grossly unremarkable in appearance. Procedure Note Angeli Sanchez MD - 01/11/2017 EXAMINATION: CT ANGIOGRAM CHEST W WO CONTRAST- 01/10/2017 INDICATION: I48.1-Persistent atrial fibrillation; preablation TECHNIQUE: Multiple axial CT imaging was obtained of the chest from the great vessels through the lung bases following the administration of intravenous contrast according to the CT angio protocol. Coronal 2-D reformatted images were submitted to further facilitate diagnostic accuracy and treatment planning. The radiation dose reduction device was turned on for each scan per the ALARA (As Low as Reasonably Achievable) protocol. COMPARISON: None. FINDINGS: The ascending thoracic aorta is mildly dilated at 3.8 cm. There is no significant atherosclerotic disease seen within the coronary vessels. No filling defect in the pulmonary arteries or veins to suggest evidence of embolism. Cardiac chambers within normal limits. No thrombus in the left atrial appendage. There is no pulmonary venous anomaly. No ostial narrowing. The esophagus lies posterior to the left atrium and left inferior pulmonary vein. The cardiac chambers are otherwise unremarkable. No pericardial effusion. No bulky hilar or axillary lymphadenopathy. Degenerative changes seen within the spine. The visualized lung parenchyma is grossly unremarkable in appearance. IMPRESSION: Mild dilatation identified of the ascending thoracic aorta. The remainder of the examination is grossly unremarkable. E: 01/11/2017 This report was finalized on 01/11/2017 2:[address] Angeli Sanchez MD. Boal Zavala DO IMG CT ORDERABLES Final Result from Last 3 Months or Most Recently Relevant to Health Maintenance Insurance [facility] Advance Directives Documents on File Type Date Recorded Patient Custom Stock Maker Expl anation LIVING WILL - SCAN 09/28/2021 8:50 AM BUCKY NG WILL/ORGAN & TISSUE DONATION 01/10/2017 Care Teams Director Statistical Programming Relationship Specialty Start Date End Date Nuria Wilson MD [address] [place] [address] PCP - General Internal Medicine 10/25/16
--- OUTSIDE RECORDS SUMMARY | 2024-12-14 18:29 | XMS_ITS | Encounter Summary ---
Author Organization [facility] Address [address] [place] [address] Care Team Providers Care Barge Worker Name Role Phone Nuria Wilson MD Primary Care Provi kemal Reason for Visit * Reason Onset Date Comments Med Refill 05/22/2021 Encounter Details Date Type Department Care Team (Late st Contact Info) Description 05/22/2021 Refill [facility] [address] [place] [address] Maye Castro, JUHI [address] [facility] [address] [place] [address] Med Refill Social History Tobacco Use Types Packs/Day Years [...] Description 01/02/2025 10:30 AM EDT Office Visit [facility] [address] [place] [address] Maye Castro, JUHI [address] [place], [place] [id number] documented as of this encounter Visit Diagnoses Not on filedocumented in this encounter Care Teams Barge Worker Relationship Specialty Start Date End Date Nuria Wilson MD [address] [place] [address] PCP - General Internal Medicine 10/25/16 documented as of this encounter
--- OUTSIDE RECORDS SUMMARY | 2024-12-14 18:29 | XMS_ITS | Encounter Summary ---
Author Organization [facility] Address [address] [place] [address] Care Team Providers Care Tray Packer Name Role Phone Nuria Wilson MD Primary Care Provi kemal Reason for Visit * Reason Comments Med Refill Encounter Details Date Type Department Care Team (Late st Contact Info) Description 03/29/2022 Refill [facility] [address] [address] Nuria Wilson MD [address] [facility] [address] [place] [id number] Social History Tobacco Use Types Packs/Day [...] encounter Miscellaneous Notes * Telephone Encounter - Nazia Pacheco RegSched Rep - 03/29/2022 3:07 PM EST PT CALLED AND WANTED TO SPEAK WITH THE NURSE ABOUT POTASSIUM AND LASIX THAT HAD BEEN DENIED. PT STATED THAT SHE HAS ALWAYS BEEN PRESCRIBED A 90 DAY SUPPLY OF XANAX AND SHE WANTS TO KNOW WHY IT WAS CALLED IN A 30 DAY SUPPLY. PLEASE CALL PT BACK documented in this encounter Plan of Treatment Upcoming Encounters Date Type Department Care Team (Late st Contact Info) Description 01/02/2025 10:30 AM EDT Office Visit [facility] [address] [facility] [place] [address] Maye Castro, JUHI [address] [place] [address] documented as of this encounter Visit Diagnoses Not on filedocumented in this encounter Care Teams Tray Packer Relationship Specialty Start Date End Date Nuria Wilson MD [address] [place] [address] PCP - General Internal Medicine 10/25/16 documented as of this encounter
[2024-12-14 18:55] LABS: Bilirubin,Urine Negative (Negative); Color,Urine YELLOW (Yellow); Glucose,Urine (UA) Negative (Negative); Ketones,Urine Negative (Negative); Leukocyte Esterase,Urine Negative (Negative); PH,Urine 6.0 (5.0-8.5); Protein,Urine Negative (Negative); Specific Gravity, Urine <= 1.005 (1.005-1.030); Urobilinogen,Urine 0.2 EU/dl (0.2)
--- NOTE | 2024-12-14 18:58 | ED_ITS ---
<Statement entered by Kylee Chery MD - 12/14/24 23:22> I was consulted by the BROOKS, and we discussed the complexity of the problems being addressed. I approved the treatment and management plan for this patient's care in the emergency department, thus performing a substantive portion of the medical decision making. Kylee Chery MD, ANGELIC, FACEP Discharge Plan Disposition Chief Complaint: Overdose Prescriptions Prescriptions: No Action sildenafil (pulm.hypertension) 20 mg tablet See Rx Instructions PO .COMPLEX PRN (Reason: sexual activity) Qty: 30 0RF Rx Instructions: 3 tablets orally 1 hour prior to sexual activity PRN; clonazepam [Klonopin] 1 mg tablet 1 mg PO DAILY Qty: 30 1RF Rx Instructions: take when systolic is greater than 180 and dystolic is greater than 110 hydroxyzine HCl 25 mg tablet See Rx Instructions PO HS Qty: 60 1RF Rx Instructions: 1 or 2 orally at bedtime for sleep ; zaleplon 10 mg capsule 10 mg PO HS PRN (Reason: sleep) Qty: 30 0RF Rx Instructions: must avoid high-fat meal/food immediately before taking dose Trelegy Ellipta 100-62.5-25 mcg blister with device 1 inh inhalation DAILY Qty: 60 5RF polyethylene glycol 3350 [Miralax] 17 gram/dose powder 17 g PO DAILY PRN (Reason: constipation) Qty: 238 5RF alprazolam 0.5 mg tablet 0.5 mg PO ONCE PRN (Reason: anxiety) Qty: 15 0RF atorvastatin 10 mg tablet 10 mg PO DAILY diltiazem HCl 360 mg capsule,extended release 24hr 360 mg PO DAILY potassium chloride 10 mEq tablet extended release 10 meq PO DAILY bisoprolol fumarate 5 mg tablet 5 mg PO DAILY pantoprazole 40 mg tablet,delayed release (DR/EC) 40 mg PO DAILY furosemide 20 mg tablet 20 mg PO DAILY lisinopril 40 mg tablet 40 mg PO DAILY albuterol sulfate 90 mcg/actuation HFA aerosol inhaler 1 inh inhalation QID PRN (Reason: shortness of breath or wheezing) Qty: 6.7 0RF mupirocin 2 % ointment 1 applic topical TID 7 Days Qty: 15 0RF Activity Restrictions/Add. Instructions Additional Instructions/Restrictions: Start medications back tomorrow. Please follow-up with PCP on Michael. If any other problems or concerns please return to the ED. Clinical Impressions Clinical Impression: Drug overdose Instructions Patient Instructions: DI for Accidental Ingestion -- Adult, DI for Drug Overdose in Adults Print Language Print Language: Thai Discharge ED Provider: Kylee Chery General Adult HPI General Chief complaint: Overdose Stated complaint: took B/P medicine twice at 3:30 AM,7:30AM Time Seen by Provider: 12/14/24 18:46 Mode of Arrival: Ambulatory Source of Information: Patient and Relative Description of Symptoms (Recalled from ER Triage Doc. by RN): patient reports to ED for accidentally taking extra blood pressure medication. david takes 40mg lisinopril and 360 mg ER diltiazem. patient stated she took her normal dose at 3:30 am again and ingested the second dose around 7:30 am. Vadim has been in touch with poison control. she called initially at 8:30 am and they called her back at 4 :30 pm and advised her that the effects would take place between 7- 10pm today and advised her to go to the nearest ER immediately. History of Present Illness HPI narrative: 59-year-old female presents to the ED today after she took lisinopril 40 mg and diltiazem 360 mg ER at 3 AM and again at 7:30 AM. States that she called poison she was in [place] and talked to Tess who told her the max efficacy would happen at 7 to 10 PM. She was told if her heart rate got below 60 to go to the emergency room. She got home and called her PCP who told her to come to the emergency room. She has been monitoring her heart rate and it has been anywhere from 54-58. Patient does complain of being lightheaded and having chest discomfort but she tells me that she does not colic pain. She has had no shortness of air. Patient appears well. Her blood pressure here on arrival is 113/61 however blood pressure while I am in the room is elevated. Related Data Home Medications ?Medication ?Instructions ?Recorded ?Confirmed atorvastatin 10 mg tablet 10 mg PO DAILY . 06/29/22 bisoprolol fumarate 5 mg tablet 5 mg PO DAILY . 07/25/24 diltiazem HCl 360 mg 360 mg PO DAILY . 06/29/22 0 07/25/24 capsule,extended release 24 hr furosemide 20 mg tablet 20 mg PO DAILY . 06/29/22 lisinopril 40 mg tablet 40 mg PO DAILY , 06/29/22 pantoprazole 40 mg tablet,delayed 40 mg PO DAILY gerd 06/29/22 07/25/24 release potassium chloride 10 mEq 10 meq PO DAILY . 06/29/22 0 07/25/24 tablet,extended release Previous Rx's ?Medication ?Instructions ?Recorded albuterol sulfate 90 mcg/actuation 1 inh inhalation QI D PRN shortness 01/19/23 aerosol inhaler of breath or wheezing #6.7 g alex mupirocin 2 % topical ointment 1 applic topical TID 7 days #15 11/04/23 grams clonazepam 1 mg tablet (Klonopin) 1 mg PO DAILY #30 ta bs 12/27/23 hydroxyzine HCl 25 mg tablet See Rx Instructions PO HS #60 tabs 03/30/24 zaleplon 10 mg capsule 10 mg PO HS PRN sleep #30 ca ps 04/17/24 fluticasone fur. 100 mcg-umeclid 1 inh inhalation BALDO Y #60 ea 05/22/24 62.5 mcg-vilant 25 mcg inhalat.powder (Trelegy Ellipta) sildenafil (pulm.hypertension) 20 See Rx Instructions PO .COMPLEX 07/25/24 mg tablet PRN sexual activity #30 tabs polyethylene glycol 3350 17 17 g PO DAILY PRN constipa tion 09/28/24 gram/dose oral powder (Miralax) #238 grams alprazolam 0.5 mg tablet 0.5 mg PO ONCE PRN anxiety # 15 tabs 12/12/24 Allergies Allergy/AdvReac Type Severity Reaction Status Date / Time No Known Allergies Allergy Verified 07/25/24 15:40 [facility] Disclaimer: The information contained in this section may have been updated after the patient was seen, as this information can be updated by other users. Medical History Essential hypertension affecting Hyperlipidemia Depression Anxiety COPD (chronic obstructive pulmonary disease) Asthma Atrial fibrillation Hypertension Surgical History History of History of tonsillectomy Family History Other Cancer Coronary artery disease Diabetes Hyperlipidemia Hypertension Social History Smoking Status: Current every day smoker tobacco type: cigarettes years smoked: 30 alcohol intake: never substance use type: marijuana current occupational status: retired Travel in the last 8 weeks?: None household members: none housing: house marital status: single number of children: 1 Have you lived/traveled outside US in past 30 days?: No Contact w/someone who lives/traveled outside US past 30 days?: No Exposure to someone with infectious disease in past 14 days?: No Do you have a fever (greater than 100.4 F or 38 C)?: No Have you tested positive for COVID-19?: No Exposed to someone with COVID-19 in past 14 days?: No Do you have a sore throat?: No Do you have a cough?: No Do you have any weakness?: No Do you have any diarrhea?: No Are you experiencing any unusual bleeding?: No Do you have any muscle aches/pain?: No Do you have any abdominal pain?: No Are you experiencing loss of taste or smell?: No Other Medical History Have you received the Pneumonia Vaccine: No ROS Obtained: Yes Systems reviewed as appropriate & no additional complaints except as documented Constitutional Constitutional: Reports as per HPI Physical Exam General General appearance: alert and in no apparent distress Head Head exam: atraumatic and normocephalic Eye Eye exam: Present PERRL and EOMI ENT ENT exam: Present normal oropharynx and mucous membranes moist Neck Neck exam: Present full ROM and trachea midline Respiratory Respiratory exam: Present normal lung sounds bilaterally Cardiovascular Cardiovascular exam: Present normal rhythm, bradycardia, normal heart sounds, +S1 and +S2 Extremities Exam Extremities exam: Present normal inspection, full ROM and normal capillary refill Neurological Exam Neurological exam: Present alert, oriented X3 and normal gait Skin Skin exam: Present warm, dry and intact Medical Decision Making Medical Records Screening: Per USPSTF and CDC recommendations, given the prevalence of disease in our region, it is our hospital?s policy to screen for HIV and viral Hepatitis for all patients aged 18 and over and those with ongoing risk factors. Jose Inquiry Pt receiving controlled substance: No Jose was queried for this patient: No Vital Signs: 12/14/24 18:04 12/14/24 18:53 12/14/24 19:00 Temperature 98.7 F Temperature Source Temporal Artery Scan Pulse Rate 56 L 65 Pulse Rate [Right Radial] 56 L Respiratory Rate 18 16 14 Blood Pressure 189/114 H 205/110 H Blood Pressure [Left Arm] 113/61 Blood Pressure Mean 139 141 Blood Pressure Mean [Left Arm] 78 Blood Pressure Source [Left Arm] Automatic Cuff Blood Pressure Position [Left Arm] Sitting 02 Sat by Pulse Oximetry 95 96 99 Oxygen Delivery Method Room Air 12/14/24 19:31 12/14/24 19:55 12/14/24 20:00 Temperature Temperature Source Pulse Rate 60 59 L 54 L Pulse Rate [Right Radial] Respiratory Rate 12 13 9 L Blood Pressure 162/97 H 162/91 H 171/93 H Blood Pressure [Left Arm] Blood Pressure Mean Blood Pressure Mean [Left Arm] Blood Pressure Source [Left Arm] Blood Pressure Position [Left Arm] 02 Sat by Pulse Oximetry 97 97 96 Oxygen Delivery Method Lab Data Lab Results 12/14/24 18:16: Urine Color Yellow, Urine Appearance Clear, Urine pH 6.0, Ur Specific [place] <= 1.005, Urine Protein Negative, Urine Glucose (UA) Negative, Urine Ketones Negative, Urine Blood Negative, Urine Nitrate Negative, Urine Bilirubin Negative, Urine Urobilinogen 0.2, Ur Leukocyte Esterase Negative, Urine RBC None, Urine WBC None, Ur Squamous Epith Cells Occasional, Urine Bacteria None Orders (Tests/Meds): ORDERS Category Date Time Status Urinalysis and Microscopic Stat Lab 12/14/24 18:16 Completed Medical Decision Narrative: patient is a 59-year-old female presenting to the emergency department for evaluation of taking 2 doses of her medication. Patient is hemodynamically stable and nontoxic-appearing upon arrival, afebrile. Differential diagnosis includes medication side effect. Workup will be conducted with hematologic labs, specific imaging. Initial inventions include crystalloid bolus, analgesics. Patient tells me soon as she gets here that she does not want an IV. Checked on patient and she is feeling better. Her blood pressure is stable. Continue to monitor. Poison control recommended monitoring for 4 hours. She will be observed until 2230. Second EKG was normal sinus. Patient safe for discharge home. Critical Care Critical Care Time Critical Care Time: No
--- NOTE | 2024-12-14 19:11 | PC.NURSE ---
Spoke with Charlee at [facility]. She states that medication would peak at 12-24 hours, symptoms would be bradycardia, hypotension and dysrythmias. She recommended we observe patient for 4 hours, repeat an EKG. Could treat bradycardia with atropine if needed.
[2024-12-14 20:22] LABS: Squamous Epithelial Cell,Urine Occasional #/hpf (0-5)
--- NOTE | 2024-12-14 20:39 | PC.NURSE ---
Pt ambulates with slow steady gait to restroom
--- NOTE | 2024-12-14 22:21 | ECG_ITS ---
APPROVED REPORT Exam: Resting ECG HR:57 bpm ECG Measurements Heart Rate 57 AXES IA 167 P 63 QRSd 84 QRS 47 QT 422 T 47 QTc 415 Conclusion SINUS BRADYCARDIA BORDERLINE ECG UNCONFIRMED REPORT Electronically signed by : Darrell Chery, 12/14/2024 23:27:45
== END 2024-12-14 22:51 | disposition home or self-care (01) ==
PROVIDERS: Emergency Provider Student in an Organized Health Care Education/Training Program
DX: T50.901A Poisoning by unspecified drugs, medicaments and biological substances, accidental (unintentional), initial encounter (principal); R07.89 Other chest pain; R42 Dizziness and giddiness; I10 Essential (primary) hypertension; E78.5 Hyperlipidemia, unspecified; J44.9 Chronic obstructive pulmonary disease, unspecified; F17.210 Nicotine dependence, cigarettes, uncomplicated
CPT/HCPCS: 81001; 93005; 99284

== ENCOUNTER 2025-01-07 12:06 | Day surgery (SDC) | payer OTHER, SELFPAY ==
--- NOTE | 2025-01-04 08:25 | EXP.HP ---
History of Present Illness *Admission Date: 01/07/25 *Reason for visit:: Positive Cologuard *History of present illness: Mrs. Ruiz is a 59-year-old female who is here for screening colonoscopy secondary to a positive Cologuard test. The examination is deemed medically necessary for screening colonoscopy. The patient has been seen, interviewed and examined prior to the procedure by both myself and the anesthesia provider. [facility] Disclaimer: The information contained in this section may have been updated after the patient was seen, as this information can be updated by other users. Medical History Essential hypertension affecting Hyperlipidemia Depression Anxiety COPD (chronic obstructive pulmonary disease) Asthma Atrial fibrillation Hypertension Surgical History History of cardiac ablation for atrial fibrillation History of History of tonsillectomy Family History Other Cancer Coronary artery disease Diabetes Hyperlipidemia Hypertension Social History (Updated 01/07/25 @ 12:33 by Indy Coon RN) Smoking Status: Current every day smoker tobacco type: cigarettes years smoked: 30 alcohol intake: never substance use type: marijuana current occupational status: retired Travel in the last 8 weeks?: None household members: none housing: house marital status: single number of children: 1 caffeine: No Have you lived/traveled outside US in past 30 days?: No Contact w/someone who lives/traveled outside US past 30 days?: No Exposure to someone with infectious disease in past 14 days?: No Do you have a fever (greater than 100.4 F or 38 C)?: No Have you tested positive for COVID-19?: No Exposed to someone with COVID-19 in past 14 days?: No Do you have a sore throat?: No Do you have a cough?: No Do you have any weakness?: No Are you experiencing any nausea/vomitting?: No Do you have any diarrhea?: No Are you experiencing any unusual bleeding?: No Do you have any muscle aches/pain?: No Do you have any abdominal pain?: No Are you experiencing loss of taste or smell?: No Other Medical History Have you received the Pneumonia Vaccine: No Review of Systems Review of Systems Review of systems (narrative): Negative *Cardiovascular Comments: Negative *Gastrointestinal Comments: Negative *Genitourinary Comments: Negative *Musculoskeletal Comments: Negative *Neurologic Comments: Negative Meds Home Medications and Allergies Home Medications ?Medication ?Instructions ?Recorded ?Confirmed ?Type bisoprolol fumarate 5 mg tablet 5 mg PO DAILY . 06/29/22 01/07/25 History diltiazem HCl 360 mg 360 mg PO DAILY . 06/29/22 01/07/25 History capsule,extended release 24 hr lisinopril 40 mg tablet 40 mg PO DAILY , 06/29/22 01/07/25 History albuterol sulfate 90 mcg/actuation 1 inh inhalation QID PRN shortness 01/19/23 01/07/25 Rx aerosol inhaler of breath or wheezing #6.7 grams fluticasone fur. 100 mcg-umeclid 1 inh inhalation DAILY #60 ea 05/22/24 01/07/25 Rx 62.5 mcg-vilant 25 mcg inhalat.powder (Trelegy Ellipta) polyethylene glycol 3350 17 17 g PO DAILY PRN constipation 09/28/24 01/07/25 Rx gram/dose oral powder (Miralax) #238 grams alprazolam 0.5 mg tablet 0.5 mg PO ONCE PRN anxiety #15 tabs 12/12/24 01/07/25 Rx sodium,potassium,mag sulfates 17.5 See Rx Instructions PO .COMPLEX 12/24/24 01/07/25 Rx gram-3.13 gram-1.6 gram oral soln #354 mL (Suprep Bowel Prep Kit) black seed 4.5 gram/5 mL oral oil 1 g PO QODHS 01/04/25 01/07/25 History magnesium 100 mg tablet 150 mg PO DAILY 01/04/25 01/07/25 History zolpidem 12.5 mg tablet,extended 12.5 mg PO HS 01/04/25 01/07/25 History release,multiphase New Prescriptions to Start Prescriptions: Allergies Allergy/AdvReac Type Severity Reaction Status Date / Time egg AdvReac Diarrhea Verified 01/07/25 12:24 mushroom AdvReac Diarrhea Verified 01/07/25 12:24 Exam *Routine HEENT Exam Head: Present normocephalic Eye: Present EOMI and PERRL ENT: Present mucous membranes moist *Routine Neck Exam Neck: Present supple *Routine Respiratory Exam Respiratory: Present CTA bilaterally *Routine Cardiovascular Exam Cardiovascular: Present RRR *Routine Abdominal Exam Abdominal: Present soft and normoactive bowel sounds; Absent tenderness *Routine Rectal Exam Rectal:: deferred *Routine Genitalia Exam Genitalia:: deferred *Routine Extremities Exam Extremities: Absent cyanosis, clubbing or edema *Routine Skin Exam Skin: Present warm; Absent rash *Routine Neurological Exam Neurological: Present alert and oriented X3 Assessment and Plan *Assessment and plan (1) Positive colorectal cancer screening using Cologuard test: Status: Acute Category: Medical Code(s): R19.5 - Other fecal abnormalities (2) Screening for colon cancer: Status: Acute Category: Medical Code(s): Z12.11 - Encounter for screening for malignant neoplasm of colon Plan A/P: 1. Positive Cologuard is the preprocedural diagnosis. The patient will be anesthetized/sedated using MAC sedation. The patient has been seen and examined. Cardiac and lung assessment prior to the examination is stable. Proceed with planned screening colonoscopy.
[2025-01-04 14:32] VITALS: BMI 36.8
--- NOTE | 2025-01-07 07:07 | HMH.PROCNOTE ---
[facility] Procedure Note Date: 01/07/25 Time: 13:17 Procedure Note:: Colonoscopy Procedure Report: Colonoscopy with cold snare polypectomy Endoscopist: Torrey Anderson II, MD Referring physician: Ifeanyi Barrera MD/Nuria Wilson MD, [address] [facility], [place] [address] Date of Procedure: January 07, 2025 Equipment: Olympus [id number] adult colonoscope Sedation: MAC sedation Indication: Mrs. Ruiz is a 59-year-old female who is here for screening colonoscopy secondary to a positive Cologuard test. The patient does state that she had a colonoscopy 3 years ago and had 3 colon polyps removed ([facility]). She does state that her mother had colon cancer in her mid 60s and her father had polyps. The patient reports no abdominal pain, weight loss, change in her bowel habits or rectal bleeding. 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 The examination is deemed medically necessary for screening colonoscopy. Procedure: Prior to the procedure, a history and physical exam was performed, and patient's medications and allergies were reviewed. The risks, benefits and alternatives of the sedation and procedure were discussed with the patient. All questions were answered and informed consent was obtained. The patient was brought to the procedure room. Patient identification and proposed procedure were verified by the physician and the nurse. The patient was placed in a left lateral decubitus position and the scope was passed under direct vision. Throughout the procedure, the patient's blood pressure, pulse, and oxygen saturations were monitored continuously. The colonoscopy was accomplished without difficulty. The patient tolerated the procedure well. Findings: On digital rectal examination there was normal rectal tone. There were no external hemorrhoids. The colonoscope was introduced through the anal canal to the rectum and advanced to the cecum. The ileocecal valve and appendiceal orifice were identified. The scope was advanced a short distance into the ileum which appeared grossly normal. The scope was then withdrawn into the colon. There were 6 polyps (ascending x 1 (8 mm), transverse x 1 (4 mm), descending x 1 (3 to 4 mm) and sigmoid x 3 (3, 4 and 4 mm)). These were all removed via cold snare polypectomy. The remaining cecum, ascending and transverse colon and mucosa were grossly normal. There were scattered diverticuli throughout the descending and sigmoid colon (LEFT colon). The rectum itself was normal. Upon retroflexion within the rectum there were grade 1-2 internal hemorrhoids. The preparation was excellent throughout with [place] Preparation Score of 9. The cecal time was 14 minutes. Impression: 1. Colonic polyps x 6 2. Extensive left-sided diverticulosis 3. Grade 1-2 internal hemorrhoids Plan: I will follow-up the polyp histology and recommend repeat screening/surveillance colonoscopy again in 3 to 5 years based upon the pathology. I would encourage a fiber bowel regimen on a long-term daily maintenance basis.
[2025-01-07 12:31] VITALS: BP 116/67; PULSE 65; RESP 18; TEMP 36.2; O2SAT 97
[2025-01-07] MEDS: LACTATED RINGERS 1000ML 1,000 ML 50 ML IV (12:41)
--- NOTE | 2025-01-07 12:46 | P.PNANES_ITS ---
[facility] Disclaimer: The information contained in this section may have been updated after the patient was seen, as this information can be updated by other users. Medical History Essential hypertension affecting Hyperlipidemia Depression Anxiety COPD (chronic obstructive pulmonary disease) Asthma Atrial fibrillation Hypertension Surgical History History of cardiac ablation for atrial fibrillation History of History of tonsillectomy Family History Other Cancer Coronary artery disease Diabetes Hyperlipidemia Hypertension Social History (Updated 01/07/25 @ 12:33 by Indy Coon RN) Smoking Status: Current every day smoker tobacco type: cigarettes years smoked: 30 alcohol intake: never substance use type: marijuana current occupational status: retired Travel in the last 8 weeks?: None household members: none housing: house marital status: single number of children: 1 caffeine: No Have you lived/traveled outside [place] in past 30 days?: No Contact w/someone who lives/traveled outside [place] past 30 days?: No Exposure to someone with infectious disease in past 14 days?: No Do you have a fever (greater than 100.4 F or 38 C)?: No Have you tested positive for COVID-19?: No Exposed to someone with COVID-19 in past 14 days?: No Do you have a sore throat?: No Do you have a cough?: No Do you have any weakness?: No Are you experiencing any nausea/vomitting?: No Do you have any diarrhea?: No Are you experiencing any unusual bleeding?: No Do you have any muscle aches/pain?: No Do you have any abdominal pain?: No Are you experiencing loss of taste or smell?: No [facility] Anesthesia Checklist Patient Identification Patient Identification: Arm Band Structural Data Admitted From: Home Planned Operative Procedure/s: Colonoscopy Consent for Planned Operative Procedure(s) Verified: Yes Verified Documents: Surgical Consent and History and Physical NPO Status Verified Time NPO: 00:00 Additional verifications Anesthesia Reactions: No Airway Assessment Mallampati Score:: Class II C-Spine Mobility Assessed: Yes TMJ Mobility Assessed: Yes Dentition: Good Dentition Neurological Assessment Level of Consciousness: Awake, Alert and Appropriate Anesthesia Plan Anesthesia Risk discussed: Yes Anesthesia Plan: Verified ASA Class: III Anesthesia Type: MAC
[2025-01-07 13:18] VITALS: BP 128/71; PULSE 71; RESP 18; TEMP 36.1; O2SAT 94
[2025-01-07 13:28] VITALS: BP 101/80; PULSE 64; RESP 18; O2SAT 98
[2025-01-07 13:38] VITALS: BP 96/54; PULSE 66; RESP 18; O2SAT 99
[2025-01-07 13:41] VITALS: BP 103/81; PULSE 70; RESP 18; O2SAT 99
== END 2025-01-07 13:43 | disposition home or self-care (01) ==
PROVIDERS: Visit Provider Internal Medicine Gastroenterology
PROC: 0DJD8ZZ Inspection of Lower Intestinal Tract, Via Natural or Artificial Opening Endoscopic (ICD-10-PCS; CPT 45378; principal; 2025-01-07 13:30)
DX: Z12.11 Encounter for screening for malignant neoplasm of colon (principal); D12.2 Benign neoplasm of ascending colon; D12.4 Benign neoplasm of descending colon; D12.5 Benign neoplasm of sigmoid colon; D12.3 Benign neoplasm of transverse colon; K59.00 Constipation, unspecified; K57.30 Diverticulosis of large intestine without perforation or abscess without bleeding; K64.0 First degree hemorrhoids; K64.1 Second degree hemorrhoids; F17.210 Nicotine dependence, cigarettes, uncomplicated; J44.89 Other specified chronic obstructive pulmonary disease; F41.9 Anxiety disorder, unspecified; I10 Essential (primary) hypertension; I48.91 Unspecified atrial fibrillation; K58.2 Mixed irritable bowel syndrome; Z83.719 Family history of colon polyps, unspecified; Z80.0 Family history of malignant neoplasm of digestive organs
CPT/HCPCS: 45385; J2003; J2704; J7120